=== PATIENT | female | born 1950 | race Caucasian/White ===

== ENCOUNTER 2020-08-08 09:22 | Outpatient (CLI) | payer MEDICARE, SELFPAY ==
[2020-08-08 09:47] LABS: Hematocrit 37.2 % (37.0-47.0); Hemoglobin 12.7 g/dL (12.0-15.0)
[2020-08-08 10:00] LABS: Blood Urea Nitrogen 17 mg/dL (7-17); Estimated Glomerular Filt Rate > 60
== END 2020-08-08 09:23 | disposition home or self-care (01) ==
PROVIDERS: PCP Internal Medicine
DX: I48.20 Chronic atrial fibrillation, unspecified (principal)
CPT/HCPCS: 36415; 82565; 84520; 85014; 85018

== ENCOUNTER 2021-02-05 10:28 | Outpatient (CLI) | payer MEDICARE, SELFPAY ==
--- NOTE | ~2021-02-05 | XR_ITS ---
EXAMINATION: XR lg joint inject/asp w image DATE: 02/05/2021 11:25 INDICATION: Right hip pain TECHNIQUE: A time-out was performed to verify the patient's name, date of , and procedure to b e performed. The procedure including the risks, benefits, and alternatives was discussed with the pat ient. Risks discussed included bleeding and infection. The patient understood the risks and agreed to proceed. The skin overlying the right hip joint was prepped and draped in usual sterile fashion. A nesthetic was administered with 1% lidocaine subcutaneously. A 22 G needle was advanced under fluoro scopic guidance into the joint. Injection of 1 mL of Omnipaque 240 confirmed intra-articular positio n of the needle. Subsequently, injectate consisting of 7 mm a 5:2 mixture of 1% lidocaine: 10 mg/mL Kenalog for a total dosage of 20 mL Kenalog was instilled. Washout of contrast was seen confirming in tra-articular administration. The needle was removed and the entry site was cleaned and dressed. The re were no immediate complications. Fluoroscopy exposure time was 0.1 minutes. The total number of im ages was 1. FINDINGS: Real-time fluoroscopy demonstrates the needle in the right hip joint. Patient's pain prior to procedure:5/10. Patient's pain following the procedure: 3/10. IMPRESSION: 1. Right hip joint injection of local anesthetic and steroid with decrease in the patient's presentin g pain. Reviewed, dictated and finalized at location A. IMPRESSION: 1. Right hip joint injection of local anesthetic and steroid with decrease in t he patient's presenting pain.
== END 2021-02-05 10:29 | disposition home or self-care (01) ==
LOC: ANHIMG 10:37
PROVIDERS: PCP Internal Medicine; Visit Provider Orthopaedic Surgery
DX: M16.11 Unilateral primary osteoarthritis, right hip (principal)
CPT/HCPCS: 20610; 77002; J3301; Q9966

== ENCOUNTER 2021-06-29 11:00 | Outpatient (CLI) | payer MEDICARE, SELFPAY ==
--- NOTE | ~2021-06-29 | XR_ITS ---
EXAMINATION: XR lg joint inject/asp w image DATE: 06/29/2021 12:20 INDICATION: Lateral primary osteoarthritis of the right hip TECHNIQUE: A time-out was performed to verify the patient's name, date of , and procedure to b e performed. The procedure including the risks, benefits, and alternatives was discussed with the pat ient. Risks discussed included bleeding and infection. The patient understood the risks and agreed to proceed. The skin overlying the right hip joint was prepped and draped in usual sterile fashion. A nesthetic was administered with 1% lidocaine subcutaneously. A 22 G needle was advanced under fluoro scopic guidance into the joint. Injection of 1 mL of Omnipaque 240 confirmed intra-articular positio n of the needle. Subsequently, injectate consisting of 7 mL a 5:2 mixture of 1% lidocaine: 10 mg/mL Kenalog for a total dosage of 20 mg Kenalog was instilled. Washout of contrast was seen confirming in tra-articular administration. The needle was removed and the entry site was cleaned and dressed. The re were no immediate complications. Fluoroscopy exposure time was 0.1 minutes. The total number of im ages was 2. FINDINGS: Real-time fluoroscopy demonstrates the needle in the right hip joint. Patient's pain prior to procedure:01/23. Patient's pain following the procedure: 10/25. IMPRESSION: 1. Successful right hip joint injection of local anesthetic and steroid with decrease in the patient' s presenting pain. Reviewed, dictated and finalized at location A. IMPRESSION: 1. Successful right hip joint injection of local anesthetic and steroid with de crease in the patient's presenting pain.
== END 2021-06-29 11:01 | disposition home or self-care (01) ==
LOC: ANHIMG 11:03
PROVIDERS: PCP Internal Medicine; Visit Provider Orthopaedic Surgery
DX: M16.11 Unilateral primary osteoarthritis, right hip (principal)
CPT/HCPCS: 20610; 77002; J3301; Q9966

== ENCOUNTER 2021-12-03 09:05 | Outpatient (CLI) | payer MEDICARE, SELFPAY ==
[2021-12-03 10:52] LABS: Basophils Absolute Auto 0.1 K/mm3 (0.0-0.1); Basophils Percent Auto 0.9 % (0.2-1.2); Eosinophils Absolute Auto 0.2 K/mm3 (0-0.3); Eosinophils Percent Auto 3.2 % (0-4.4); Hematocrit 40.9 % (37.0-47.0); Hemoglobin 13.6 g/dL (12.0-15.0); Immature Granulocyte Absolute 0.01 K/mm3 (0.00-0.031); Immature Granulocyte Percent A 0.2 % (0-0.5); Lymphocytes Absolute Auto 1.87 K/mm3 (0.9-3.2); Lymphocytes Percent Auto 35.2 % (18.3-44.2); Mean Corpuscular HGB Conc 33.3 g/dl (32-36); Mean Corpuscular Hemoglobin 29.8 pg (26-34); Mean Corpuscular Volume 89.7 fl (80-100); Mean Platelet Volume 9.2 fl (7.4-10.4); Monocytes Absolute Auto 0.4 K/mm3 (0.1-0.6); Monocytes Percent Auto 7.2 % (2.6-8.5); Neutrophils Absolute Auto 2.8 K/mm3 (1.3-6.7); Neutrophils Percent Auto 53.3 % (45.5-73.1); Platelet Count Result 308 k/mm3 (150-375); Red Blood Count 4.56 M/mm3 (4.2-5.4); Red Cell Distribution Width 12.8 % (11.5-14.5); White Blood Count 5.3 K/mm3 (4.5-10.0)
[2021-12-03 10:56] LABS: Urine Cotinine NEGATIVE
[2021-12-03 11:02] LABS: Albumin Level 4.7 g/dL (3.5-5.1); Estimated Glomerular Filt Rate > 60; Glucose 101 mg/dL (65-110)
[2021-12-03 12:14] LABS: Hemoglobin A1C 5.8 % (<5.7)
== END 2021-12-03 09:06 | disposition home or self-care (01) ==
PROVIDERS: PCP Internal Medicine; Visit Provider Orthopaedic Surgery
DX: M16.11 Unilateral primary osteoarthritis, right hip (principal); Z01.818 Encounter for other preprocedural examination
CPT/HCPCS: 80307; 82040; 82565; 82947; 83036; 85025; 86850; 86900; 86901; 87081

== ENCOUNTER 2021-12-14 01:14 | Day surgery (SDC) | payer MEDICARE, SELFPAY ==
[2021-12-03 09:18] VITALS: BMI 28.9
--- NOTE | 2021-12-03 09:57 | PC.NURSE ---
Report to the Outpatient Waiting Room, entrance under the green pavilion located off [facility], at time _0600 on date _12/14/21 . OR Time: . - You and your visitor will be asked a series of questions to screen for COVID 19 for your protection. - A mask is required within the hospital. Preoperative COVID Testing Requirements: No COVID Test needed if: (proof is required; if not received patient will have Rapid Test prior to entry) - Patient has received COVID Vaccine at least 14 days prior to procedure date or - Patient has positive COVID test result within last 90 days of surgery date. COVID Test needed if above criteria is not met If not COVID vaccinated a COVID test must be conducted within 72 hours of surgery and patient is asked to isolate self from time of testing until procedure. You will go to the [facility] for your COVID testing. The [facility] is located at the corner of [address] [facility]. You will only be called if COVID results are positive and your surgeon may reschedule your elective surgery date. Patients may have clear liquids (water, carbonated beverages, clear teas, apple juice) until 3 hours prior to surgery with a maximum of 20 ounces. - No food from midnight until time of surgery - Infants may have breast milk until 4 hours before surgery, formula 6 hours prior to surgery. - Children will be allowed to drink immediately following surgery. If applicable, please bring a bottle or sippy cup to assist with drinking. Juice, water, soda, and popsicles are readily available. For infants on formula, please bring formula the day of surgery. Pacifiers are allowed. Take the following medications with a SIP of water the morning of surgery: __LEVOTHYROXINE Medications to discontinue per physician ____ELIQUIS 48 HOURS PRE OP__PER DR MCKEON. ALL VITAMINS AND SUPPLEMENTS 3 DAY PRE OP Date to take last dose__ELIQUIS 2/26/22, VITAMINS 12/10/21 Please no make-up, nail cuban, hairspray, perfume, deodorant, or body powder the day of surgery. No jewelry (including any body piercings) or valuables the day of surgery, leave them at home. Please take a shower or bath the night before, or the morning of, surgery with an antibacterial soap. Wear comfortable, loose fitting clothing. Children are encouraged to wear pajamas. - Jewelry must be removed prior to entering the operating room. Rings and piercings that are not removed may be cut off. - The hospital will not accept responsibility for valuables. - Please leave all valuables, including medications, at home the day of surgery. If you are going home after surgery, a licensed [employer] flatbed driver must drive you home. - NO public transportation without another adult. - We recommend that an adult stay with you for 24 hours following discharge. - We also recommend that you do not drive, make important decision, drink alcoholic beverages, or take any drugs that were not prescribed by your health care provider for at least 24 hours after your discharge time. For Pediatric surgeries, we recommend two adults accompany the child home (only one inside the building at this time). One visitor will be allowed to accompany the patient into the hospital. Patients visitor will be instructed to remain with patient at all times or leave the building. We will allow the visitor to come back to the postoperative area when patient is ready. Follow any additional instructions given to you from your surgeon. VERBAL/WRITEN instructions given to ___PATIENT and asked if any additional questions and then verbalized understanding. Patient advised to call surgeon office or pre surgery nurse liaison [phone] if any additional questions.
[2021-12-03 10:16] VITALS: BP 128/62; PULSE 77; RESP 18; TEMP 36.6; O2SAT 99
--- NOTE | 2021-12-13 09:36 | WPDANESEPPF ---
Anes - Initial Pre Proc Eval Procedure: Operation Date: 12/14/21 07:30 Proposed Procedures p Right Total Hip Arthroplasty, Anterior Approach - William Randall MD Date/Time: 12/13/21 09:36 Surgeon: William Randall MD Pre Op Diagnosis: OA Right Hip Patient Data Age: 71 Gender: F Height: 1.55 m Weight: 69.4 kg Last Vital Signs Temp 36.6 C 12/03/21 10:16 Pulse 77 12/03/21 10:16 Resp 18 12/03/21 10:16 BP 128/62 12/03/21 10:16 Pulse Ox 99 12/03/21 10:16 Allergies Allergy/AdvReac Type Severity Reaction Status Date / Time Sulfa (Sulfonamide Allergy Unknown Rash Verified 12/07/21 09:57 Antibiotics) Home Medications Medication Instructions Recorded Confirmed Type apixaban 5 mg tablet 5 mg PO BID 08/11/20 12/03/21 History ascorbic acid (vitamin C) 500 mg 1,000 mg PO DAILY 08/11/20 12/03/21 History capsule carisoprodol 250 mg tablet 350 mg PO PRN PRN 08/11/20 12/03/21 History cholecalciferol (vitamin D3) 50 50 mcg PO DAILY 08/11/20 12/03/21 History mcg (2,000 unit) capsule coenzyme Q10 200 mg capsule 200 mg PO BID 08/11/20 12/03/21 History docusate sodium 100 mg capsule 100 mg PO HS 08/11/20 12/03/21 History multivitamin 1 tablet PO DAILY 08/11/20 12/03/21 History red yeast rice 600 mg capsule 600 mg PO BID 08/11/20 12/03/21 History tramadol 50 mg tablet 50 mg PO PRN PRN 08/11/20 12/03/21 History triamcinolone acetonide 0.025 % 1 applic TOPICAL PRN PRN 08/11/20 12/03/21 History topical ointment atorvastatin 10 mg tablet 10 mg PO 2XW 01/28/21 12/03/21 History calcium carbonate [Os-Toney] 500 mg PO DAILY 12/03/21 12/03/21 History levothyroxine 50 mcg PO DAILY 12/03/21 12/03/21 History metoprolol succinate 12.5 mg PO HS 12/03/21 12/03/21 History Patient hx anesthesia problems: none Family hx anesthesia problems: none Results Review: All pre-operative results and documents have been reviewed as part of the pre-operative evaluation. [facility] Past Medical History Medical History (Updated 12/13/21 @ 09:38 by Alexi Ansari DO) ADHD Arthritis of right hip Atrial fibrillation ablation 09/05 Breast cancer History of arthritis Hypothyroidism ARAMIS (obstructive sleep apnea) PONV (postoperative nausea and vomiting) Primary osteoarthritis, right shoulder Skin cancer Surgical History Surgical History (Updated 12/13/21 @ 09:38 by Alexi Ansari DO) H/O knee surgery left tka, Dr. Randall, 2009 H/O repair of right rotator cuff Dr. Randall, 1999 H/O shoulder surgery left, arthroscopy 2013 H/O: hysterectomy History of left shoulder replacement Family History Family History Mother Diabetes mellitus Cancer History of arthritis Cerebrovascular accident Father History of arthritis Social History Social History Smoking status: Never smoker Additional smoking assessment comments: DENIES ANY FORM OF TOBACCO USE Alcohol intake: current Drinks per week: 7 Alcohol use details: occasional Living arrangements: with family Additional living arrangements comments: spouse Gender identity (if verbalized by the patient): Female Spiritual care concerns: No Anes - Eval Final PreProcedure Day of Procedure 12/13/21 09:36 Patient weight: overweight Heart: regular rate and rhythm Lungs: clear to auscultation and normal air movement Airway: Mallampati scale class II Neurological: alert and oriented Last oral intake: >/= 8 hours ASA classification: III Emergent: no Anesthetic plan: proceed Anesthesia type and monitoring: general ETT and standard monitoring Results Review: All pre-operative results and documents have been reviewed as part of the pre-operative evaluation. Informed Consent: The patient's anesthetic plan and its attendant risks and benefits were discussed with the patient/family/POA. Questions were solicited and answers provided to
[2021-12-14] VITALS (8 sets, daily range): BP systolic 101–144; BP diastolic 56–90; PULSE 66–93; RESP 14–29; TEMP 36.3–36.9; O2SAT 98–100
--- NOTE | ~2021-12-14 | XR_ITS ---
EXAMINATION: XR surgery orthopedic DATE: 12/14/2021 08:43 INDICATION: Unilateral primary osteoarthritis, right hip. Aborted anterior approach total right hip a rthroplasty. TECHNIQUE: A single intraoperative fluoroscopic view of right hip was obtained. I was not present. Fl uoroscopy exposure time was 8 seconds. COMPARISON: Right hip radiographs 12/07/2021. FINDINGS: Bone alignment is normal. No fracture. There is moderate right hip osteoarthritis. IMPRESSION: 1. Moderate right hip osteoarthritis. Reviewed, dictated and finalized at location A. E CLEANER
[2021-12-14] MEDS: LACTATED RINGERS 1,000 ML 30 ML IV CONT (06:45)
[2021-12-14] MEDS: ACETAMINOPHEN 500 MG TABLET 1000 MG PO (07:00)
--- NOTE | 2021-12-14 07:12 | WPDHPUPDATE1 ---
History and Physical Update Update Date/Time: 12/14/21 07:12 History and Physical has been reviewed, including an updated exam of the patient. There are NO changes in the patient's condition. Risks, benefits, and alternatives have been discussed and questions answered. Patient agrees to proceed with procedure.
[2021-12-14] MEDS: TRANEXAMIC ACID 1,000MG/ISO100 1,000 MG/100 ML BAG 200 MG IVPB (07:15)
[2021-12-14] MEDS: ceFAZolin 2 GM/D5W 50 ML 2 GM/50 ML BAG IVPB (07:30)
--- NOTE | 2021-12-14 09:03 | P.OP_ITS ---
Procedure Note - Detailed Date of Procedure 12/14/21 Pre-op Diagnosis OA Right Hip Post-op Diagnosis same Procedure Performed Aborted right total hip replacement Surgeon William Randall MD As[employer] Removal Supervisor Dominique Park Anesthesia general Description of Procedure The patient was identified and proper site identified. She was taken back to the operating room and after general anesthetic induction and intubation was transferred to the [place] table position her supine in usual manner for an anteri or hip procedure. The right hip and thigh area was prepped and draped in usual sterile fashion. A longitudinal incision was made over the TFL muscle belly. There was what appeared clinically to be a lipoma in the area however the subcutaneous fat had a normal appearance. The TFL fascia was incised along for inspection of the muscle. The proximal 2/3 of this was fibrotic and non contractile with what appeared to be some type of an infiltrative lesion. The decision was made to biopsy this, obtain meticulous hemostasis and then after irrigation, closed the wound. It was closed with a looped PDS for the TFL fascia and the subcutaneous tissue, 3-0 Monocryl and 2-0 Quill with tissue adhesive for the skin. She received perioperative antibiotics. Estimated blood loss was negligible. Estimated Blood Loss 5 Drains No Packing No Pathology yes (Biopsy of TFL) Complications No immediate complications Condition stable Disposition PACU
[2021-12-14] MEDS: fentaNYL CITRATE INJ (*CRX) 100 MCG/2 ML VIAL 25 MCG IV PUSH ×4 (09:23→09:36)
--- NOTE | 2021-12-14 09:45 | SUR.PHASEI ---
0945 dr price at side and talked to pt about aborting procedure and pt to be discharged home.
== END 2021-12-14 11:15 | disposition home or self-care (01) ==
PROVIDERS: PCP Internal Medicine; Visit Provider Orthopaedic Surgery
PROC: (CPT 27130; principal; 2021-12-14 07:30)
DX: D17.9 Benign lipomatous neoplasm, unspecified (principal); M16.11 Unilateral primary osteoarthritis, right hip; G47.33 Obstructive sleep apnea (adult) (pediatric); E03.9 Hypothyroidism, unspecified; Z85.3 Personal history of malignant neoplasm of breast
CPT/HCPCS: 20205; 80307; 82040; 82565; 82947; 83036; 85025; 86850; 86900; 86901; 87081; 88305; A9270; J0171; J0690; J1100; J1170; J2250; J2270; J2405; J2704; J2710; J2795; J3010; J7120

== ENCOUNTER 2021-12-28 08:02 | Outpatient (CLI) | payer MEDICARE, SELFPAY ==
[2021-12-28 09:05] LABS: Anion Gap 7 mmol/L (8-16); Blood Urea Nitrogen 16 mg/dL (7-17); Carbon Dioxide 29 mmol/L (22-30); Chloride 102 mmol/L (98-107); Estimated Glomerular Filt Rate > 60; Glucose 102 mg/dL (65-110); Potassium 4.6 mmol/L (3.4-5.0); Sodium 138 mmol/L (137-145)
== END 2021-12-28 08:03 | disposition home or self-care (01) ==
LOC: ANHSURGERY 08:04
PROVIDERS: Anesthesiology; PCP Internal Medicine; Visit Provider Orthopaedic Surgery
DX: M16.11 Unilateral primary osteoarthritis, right hip (principal); Z79.899 Other long term (current) drug therapy; Z01.818 Encounter for other preprocedural examination
CPT/HCPCS: 36415; 80048; 86850; 86900; 86901

== ENCOUNTER 2022-01-11 14:58 | Observation (INO) | payer MEDICARE, SELFPAY ==
--- NOTE | 2021-12-28 08:02 | PC.NURSE ---
Report to the Outpatient Waiting Room, entrance under the green pavilion located off [facility], at time _0600_ on date _01/10/22_. OR Time: _0730_. - You and your visitor will be asked a series of questions to screen for COVID 19 for your protection. - A mask is required within the hospital. One visitor will be allowed to accompany the patient into the hospital. Patients visitor will be instructed to remain with patient at all times or leave the building. VISITING HOURS 10AM-7PM, USE MAIN ENTRANCE Preoperative COVID Testing Requirements: NONE Patients may have clear liquids (water, carbonated beverages, clear teas, apple juice) until 3 hours prior to surgery (0430 AM) with a maximum of 20 ounces. - No food from midnight until time of surgery Take the following medications with a SIP of water the morning of surgery: _LEVOTHYROXINE, PAIN MED IF NEEDED__ Medications to discontinue per PETS SALESPERSON - _ELIQUIS 2 DAYS PRIOR TO SURGERY, LAST DOSE TO BE TAKEN ON 01/07/22_ Medications to discontinue per ANESTHESIA - _ALL VITAMINS, SUPPLEMENTS, 3 DAYS PRIOR TO SURGERY, LAST DOSE TO BE TAKEN ON 01/06/22_ Please no make-up, nail english, hairspray, perfume, deodorant, or body powder the day of surgery. No jewelry (including any body piercings) or valuables the day of surgery, leave them at home. Please take a shower or bath the night before, or the morning of, surgery with an antibacterial soap. Wear comfortable, loose fitting clothing. - Jewelry must be removed prior to entering the operating room. Rings and piercings that are not removed may be cut off. - The hospital will not accept responsibility for valuables. - Please leave all valuables, including medications, at home the day of surgery. If you are going home after surgery, a licensed pick up driver must drive you home. - NO public transportation without another adult. - We recommend that an adult stay with you for 24 hours following discharge. - We also recommend that you do not drive, make important decision, drink alcoholic beverages, or take any drugs that were not prescribed by your health care provider for at least 24 hours after your discharge time. Follow any additional instructions given to you from DR. BURT Instructions given to __PT and asked if any additional questions and then verbalized understanding. Patient advised to call surgeon office or pre surgery nurse liaisonLEXIE [phone] if any additional questions.
[2021-12-28 08:17] VITALS: BP 118/68; PULSE 78; RESP 18; TEMP 36.7; O2SAT 98; BMI 28.3
--- NOTE | 2022-01-09 14:40 | WPDANESEPPF ---
Anes - Initial Pre Proc Eval Procedure: Operation Date: 01/10/22 07:30 Proposed Procedures p Right Total Hip Arthroplasty - William Randall MD Date/Time: 01/09/22 14:40 Surgeon: William Randall MD Pre Op Diagnosis: oa right hip Patient Data Age: 71 Gender: F Height: 1.55 m Weight: 68 kg Last Vital Signs Temp 36.7 C 12/28/21 08:17 Pulse 78 12/28/21 08:17 Resp 18 12/28/21 08:17 BP 118/68 12/28/21 08:17 Pulse Ox 98 12/28/21 08:17 Allergies Allergy/AdvReac Type Severity Reaction Status Date / Time Sulfa (Sulfonamide Allergy Unknown Rash Verified 01/10/22 06:27 Antibiotics) Home Medications Medication Instructions Recorded Confirmed Type apixaban 5 mg tablet 5 mg PO BID 08/11/20 01/10/22 History ascorbic acid (vitamin C) 500 mg 1,000 mg PO DAILY 08/11/20 01/10/22 History capsule carisoprodol 250 mg tablet 350 mg PO PRN PRN 08/11/20 01/10/22 History cholecalciferol (vitamin D3) 50 50 mcg PO DAILY 08/11/20 01/10/22 History mcg (2,000 unit) capsule coenzyme Q10 200 mg capsule 200 mg PO BID 08/11/20 01/10/22 History docusate sodium 100 mg capsule 100 mg PO HS 08/11/20 01/10/22 History multivitamin 1 tablet PO DAILY 08/11/20 01/10/22 History red yeast rice 600 mg capsule 600 mg PO BID 08/11/20 01/10/22 History tramadol 50 mg tablet 50 mg PO PRN PRN 08/11/20 01/10/22 History triamcinolone acetonide 0.025 % 1 applic TOPICAL PRN PRN 08/11/20 12/29/21 History topical ointment atorvastatin 10 mg tablet 10 mg PO 2XW 01/28/21 01/10/22 History calcium carbonate 500 mg PO DAILY 12/03/21 01/10/22 History levothyroxine 50 mcg PO DAILY 12/03/21 01/10/22 History metoprolol succinate 12.5 mg PO HS 12/03/21 01/10/22 History hydrocodone-acetaminophen 1 tablet PO Q4H PRN #20 tablet 12/14/21 01/10/22 Rx furosemide 40 mg PO DAILY PRN 12/28/21 12/29/21 History furosemide 40 mg tablet 40 mg PO QAM 12/29/21 12/29/21 History Patient hx anesthesia problems: none Family hx anesthesia problems: none Results Review: All pre-operative results and documents have been reviewed as part of the pre-operative evaluation. [facility] Past Medical History Medical History ADHD Arthritis of right hip Atrial fibrillation ablation 09/05 Breast cancer History of arthritis Hypothyroidism ARAMIS (obstructive sleep apnea) PONV (postoperative nausea and vomiting) Primary osteoarthritis, right shoulder Skin cancer Surgical History Surgical History H/O knee surgery left tka, Dr. Randall, 2009 H/O repair of right rotator cuff Dr. Randall, 1999 H/O shoulder surgery left, arthroscopy 2013 H/O: hysterectomy History of left shoulder replacement Family History Family History Mother Diabetes mellitus Cancer History of arthritis Cerebrovascular accident Father History of arthritis Social History Social History Smoking status: Never smoker Second hand tobacco smoke exposure: No Additional smoking assessment comments: PT DENIES ALL FORMS OF TOBACCO USE Alcohol intake: current Drinks per week: 7 Alcohol use details: occasional Substance use: never Substance use type: does not use Living arrangements: with family Additional living arrangements comments: spouse Gender identity (if verbalized by the patient): Female Spiritual care concerns: No Anes - Eval Final PreProcedure Day of Procedure 01/09/22 14:40 Patient weight: overweight Heart: regular rate and rhythm Lungs: clear to auscultation and normal air movement Airway: Mallampati scale class II Neurological: alert and oriented Last oral intake: >/= 8 hours ASA classification: III Emergent: no Anesthetic plan: proceed Anesthesia type and monitoring: general ETT and standard monitoring Results Review: All pre-operati
[2022-01-10] VITALS (15 sets, daily range): BP systolic 89–132; BP diastolic 39–68; PULSE 65–93; RESP 12–23; TEMP 35.6–37.4; O2SAT 92–100
[2022-01-10] MEDS: ACETAMINOPHEN 500 MG TABLET 1000 MG PO (06:40)
[2022-01-10] MEDS: LACTATED RINGERS 1,000 ML 30 ML IV CONT ×2 (06:45→10:25)
--- NOTE | 2022-01-10 07:13 | WPDHPUPDATE1 ---
History and Physical Update Update Date/Time: 01/10/22 07:13 History and Physical has been reviewed, including an updated exam of the patient. There are NO changes in the patient's condition. Risks, benefits, and alternatives have been discussed and questions answered. Patient agrees to proceed with procedure.
[2022-01-10] MEDS: TRANEXAMIC ACID 1,000MG/ISO100 1,000 MG/100 ML BAG 200 MG IVPB (07:15)
[2022-01-10] MEDS: ceFAZolin 2 GM/D5W 50 ML 2 GM/50 ML BAG IVPB ×3 (07:30→23:01)
--- NOTE | 2022-01-10 10:41 | W.PM.PROC2 ---
Procedure Note - Detailed Date of Procedure 01/10/22 Pre-op Diagnosis oa right hip Post-op Diagnosis Same Procedure Performed Right total hip replacement through an anterolateral approach Surgeon William Randall MD [place] Pumper Dominique Park Anesthesia General Description of Procedure The patient was identified and proper site identified. Prior incision from anterior approach healed very nicely. She was taken back to the operating room and transferred to the OR table placing her supine taking care to pad her torso and extremities. After general anesthetic induction and intubation, she was position in the left lateral decubitus position in the usual manner for the procedure. Care was taken to properly pad and position her torso and extremities. The right lower extremity was prepped and draped in usual sterile fashion. A curvilinear incision was made over the greater trochanter. Subcutaneous tissue sharply dissected down to the gluteus fascia and ITB band which were divided in line with the incision. The anterior half of the abductors were extremely attenuated. The remaining abductor was released off of the greater trochanter. Capsule was divided in inverted T fashion allowing for access to the hip joint. The hip was dislocated and a neck cut was made about two fingerbreadths above the level of the lesser trochanter. The acetabulum was cleared of debris and sequentially reamed up to 51 millimeters for a size 52 G7 cup which was impacted in about 20? of anteversion and 45? of abduction following the patient's anatomy. It was further secured with two screws and then the liner for the dual mobility cup was seated after cleaning the acetabular component. The proximal femur was broached up to a size 12 microplasty high offset stem. The hip was reduced and noted to be stable. Intraoperative x-ray showed not only good position of the acetabular component but good fit and fill of the femoral component. Trial components were removed. The femur was cleaned and then the real size 12 high offset microplasty stem inserted in approximately 15? of anteversion following the patient's anatomy. The combination of a 28- three head with the dual mobility cup the 52 gave good uatsdin of leg lengths and excellent stability. The neck and femoral component was cleaned and dried the real size 28- two head with the dual mobility polyethylene wear seated on the neck and the femoral component after joining the two head components. Hip again reduced and stability assessed. It was noted be stable with no tendency for dislocation at any point through range of motion. After thorough lavage of the joint, the capsule was repaired with interrupted 2. Vicryl suture. The periarticular and sheridan-incisional tissues were infiltrated with a total of 60 cubic centimeters of the arthroplasty solution. Surgicel powder was used both deep and superficial to the extensor mechanism throughout the closure. The abductor was repaired back to the greater trochanter with combination of 5. Ethibond suture passed a bony bridge and 2. Vicryl. This gave a jacobsen repair which was stable as the hip was taken through range of motion. The deep fascia was reapproximated with 0 looped PDS suture as was the deeper layers of the subcu. More superficially 3-0 Monocryl, 2-0 Quill and tissue adhesive were used for the skin. Sterile dressing was applied. She tolerated the procedure well. She was returned to supine position, awakened, extubated then taken to recovery area in stable condition. There were no known intraoperative complications. Estimated blood loss 250 milliliters. There was not enough to do cell Saver return. She received perioperative antibiotics. Estimated Blood Loss -250.0 Urine Output -350.0 Packing No Pathology None sent Complications No immediate complications Condition Stable Disposition PACU
[2022-01-10] MEDS: fentaNYL CITRATE INJ (*CRX) 100 MCG/2 ML VIAL 25 MCG IV PUSH ×7 (10:51→11:27)
[2022-01-10 11:07] LABS: Hematocrit 33.8 % (37.0-47.0); Hemoglobin 11.4 g/dL (12.0-15.0)
--- NOTE | 2022-01-10 12:10 | ADMGEN ---
This patient, Alexandria Howe, was admitted to Medical Room 255-. Patient/family oriented to hospital policies and general routines including ID bracelet, bed and alarms, visiting hours, pain management, procedures, bathroom and other care routines, personal items, smoking policy, room service/diet, and visiting hours. Information on how to activate the Rapid Response Team has been discussed. Patient/Family are encouraged to report perceived risks to care and to ask questions if they do not understand what they are told or what they should do.
[2022-01-10] MEDS: SODIUM CHLORIDE 0.9% IV 1,000 ML 125 ML IV CONT (12:33)
[2022-01-10] MEDS: KETOROLAC 15 MG/ML VIAL (*BKC) IV PUSH ×3 (12:35→23:02)
[2022-01-10] MEDS: HYDROcodone/acetaminophen (*CRX) 7.5-325 MG TABLET 1 TAB PO ×2 (13:54→17:47)
[2022-01-10] MEDS: APIXABAN 5 MG TABLET PO (16:31)
[2022-01-10] MEDS: SENNA/DOCUSATE SODIUM TABLET 2 TAB PO (16:31)
[2022-01-10] MEDS: ATORVASTATIN 10 MG TABLET PO (20:05)
[2022-01-10] MEDS: HYDROcodone/acetaminophen (*CRX) 7.5-325 MG TABLET 2 TAB PO (23:36)
[2022-01-11] VITALS (10 sets, daily range): BP systolic 94–126; BP diastolic 40–57; PULSE 87–100; RESP 14–20; TEMP 36.3–37.1; O2SAT 91–100
--- NOTE | ~2022-01-11 | XR_ITS ---
EXAMINATION: XR hip RT min 2V DATE: 01/10/2022 10:38 INDICATION: Right total hip arthroplasty. Postop. TECHNIQUE: 2 views of right hip were obtained. COMPARISON: Right hip radiographs 12/07/2021 FINDINGS: There is a total right hip arthroplasty in near-anatomic alignment. No fracture. There is g as in the soft tissues, consistent with recent surgery. IMPRESSION: 1. Total right hip arthroplasty in near-anatomic alignment. Reviewed, dictated and finalized at location A.
--- NOTE | ~2022-01-11 | XR_ITS ---
EXAMINATION: XR surgery orthopedic DATE: 01/10/2022 09:22 INDICATION: Intraoperative evaluation during right total hip arthroplasty TECHNIQUE: Frontal view of the right total hip was obtained. COMPARISON: 12/07/2021 FINDINGS: Intraoperative image during a right total hip arthroplasty demonstrate placement of an acetabular com ponent which appears in near anatomic alignment on the single image provided. A femoral broach is in place with the proximal tip centered over the acetabular component. Portions of the pelvis are obscu red by a bolster. No fractures in the visualized bones. IMPRESSION: 1. Expected appearance during right total hip arthroplasty. Reviewed, dictated and finalized at location A.
[2022-01-11] MEDS: KETOROLAC 15 MG/ML VIAL (*BKC) IV PUSH ×2 (06:00→12:26)
[2022-01-11] MEDS: LEVOTHYROXINE SODIUM 50 MCG TABLET PO (06:00)
[2022-01-11] MEDS: ceFAZolin 2 GM/D5W 50 ML 2 GM/50 ML BAG IVPB (06:01)
[2022-01-11 06:02] LABS: Basophils Percent Auto 0.6 % (0.2-1.2); Eosinophils Absolute Auto 0.1 K/mm3 (0-0.3); Hemoglobin 9.5 g/dL (12.0-15.0); Immature Granulocyte Absolute 0.02 K/mm3 (0.00-0.031); Immature Granulocyte Percent A 0.3 % (0-0.5); Lymphocytes Percent Auto 22.6 % (18.3-44.2); Mean Corpuscular HGB Conc 32.8 g/dl (32-36); Mean Corpuscular Hemoglobin 30.4 pg (26-34); Mean Corpuscular Volume 92.7 fl (80-100); Mean Platelet Volume 9.3 fl (7.4-10.4); Monocytes Absolute Auto 0.6 K/mm3 (0.1-0.6); Monocytes Percent Auto 8.9 % (2.6-8.5); Neutrophils Absolute Auto 4.7 K/mm3 (1.3-6.7); Neutrophils Percent Auto 66.6 % (45.5-73.1); Platelet Count Result 217 k/mm3 (150-375); Red Blood Count 3.13 M/mm3 (4.2-5.4); Red Cell Distribution Width 13.2 % (11.5-14.5); White Blood Count 7.1 K/mm3 (4.5-10.0)
[2022-01-11] MEDS: HYDROcodone/acetaminophen (*CRX) 7.5-325 MG TABLET 1 TAB PO ×3 (06:16→15:46)
[2022-01-11 06:28] LABS: Anion Gap 3 mmol/L (8-16); Blood Urea Nitrogen 10 mg/dL (7-17); Carbon Dioxide 27 mmol/L (22-30); Chloride 105 mmol/L (98-107); Estimated CRCL calculation 62 ml/min; Estimated Glomerular Filt Rate > 60; Glucose 110 mg/dL (65-110); Potassium 3.9 mmol/L (3.4-5.0); Sodium 135 mmol/L (137-145)
[2022-01-11] MEDS: MULTIVITAMINS THERAPEUTIC TAB (*BKC) 1 TABLET PO (08:03)
[2022-01-11] MEDS: SENNA/DOCUSATE SODIUM TABLET 2 TAB PO ×2 (08:03→16:29)
[2022-01-11] MEDS: ASCORBIC ACID 500 MG TABLET 1000 MG PO (08:03)
[2022-01-11] MEDS: polyethylene glycoL 3350 17 GM POWD.PACK PO (08:03)
[2022-01-11] MEDS: CALCIUM CARBONATE (OSCAL) 500 MG TABLET PO (08:03)
[2022-01-11] MEDS: CHOLECALCIFEROL 1,000 UNITS TABLET 2000 UNITS PO (08:03)
[2022-01-11] MEDS: APIXABAN 5 MG TABLET PO ×2 (08:03→16:29)
--- NOTE | 2022-01-11 08:29 | PM.DS ---
DS: Admitting Diagnosis Discharge Date January 11, 2022 Admitting Diagnosis Right hip osteoarthritis DS: Discharge Diagnosis Discharge Diagnosis (1) History of total right hip arthroplasty: Code(s): Z96.641 - Presence of right artificial hip joint Status: Acute Assessment and Plan: 71-year-old female postop day 1 after right total hip arthroplasty by Dr. Randall. She does report a dull ache in the hip but it is controlled with the pain medication she is taking. She had an unremarkable overnight stay and we will plan to see her in 2 weeks for wound check. She will be discharged home with hydrocodone 7.5/325 mg for pain control. I informed her not to take scheduled Tylenol while she is taking this medication. When she has weaned herself off of this medication she can start taking the Tylenol on a schedule. She will resume her previously prescribed Eliquis for DVT prophylaxis. DS: Summary Hospital Course Reason for hospitalization: Observation after outpatient procedure Hospital Course: 71-year-old female admitted for observation after right total hip arthroplasty using anterior lateral approach by Dr. Randall. She did receive therapy yesterday and will planned to do so again today prior to discharge. Unremarkable overnight stay. Status at Discharge Functional status at discharge: uses cane/walker Overall status at discharge: patient is progressing back to baseline Time Spent with Patient Time attestation: Total time spent providing and/or coordinating discharge services: Time spent: Less than 30 minutes Exam Const: General: comfortable and no acute distress HENMT: Mouth: Yes moist mucous membranes Eyes: General: appearance normal, both eyes and all related structures Resp: Effort & Inspection: normal respiratory effort GI: Inspection: non-distended GI Palp: No Tenderness to palpation present (GI) Neuro: Sensory Exam: normal sensation Extrem: Other: Exam of the right lower extremity reveals a clean and dry surgical dressing. Mild swelling in the extremity. She is able to wiggle toes and plantar and dorsiflex the foot without difficulty. Neurovascular status unremarkable. Calves negative. Psych: Mental Status: mental status grossly normal DS: Data Data Completed and Pending Labs on day of discharge: Labs from last 24 hours 01/11/22 01/11/22 01/10/22 05:42 05:42 10:57 WBC 7.1 RBC 3.13 L Hgb 9.5 L 11.4 L Hct 29.0 L 33.8 L MCV 92.7 MCH 30.4 MCHC 32.8 RDW 13.2 Plt Count 217 MPV 9.3 Immature Gran % (Auto) 0.3 Neut % (Auto) 66.6 Lymph % (Auto) 22.6 [place] % (Auto) 8.9 H Eos % (Auto) 1.0 Baso % (Auto) 0.6 Lymph # (Auto) 1.60 [place] # (Auto) 0.6 Eos # (Auto) 0.1 Baso # (Auto) 0.0 Abs Immat Gran (auto) 0.02 Absolute Neuts (auto) 4.7 Absolute Nucleated RBC 0.0 Nucleated RBC % 0.0 Sodium 135 L Potassium 3.9 Chloride 105 Carbon Dioxide 27 Anion Gap 3 L BUN 10 D Creatinine 0.60 L Estim Creat Clear Calc 62 Estimated GFR > 60 Glucose 110 Calcium 8.0 L Discharge Plan Discharge Patient Disposition: Home, Self-Care Discharge Instructions: 3 times daily for 20 minutes each time, reclining in bed with ice packs over the incision and a pillow underneath the calf of the affected leg, not under the knee. Your wound is glued so it is okay to get into the shower and get the wound wet in two days. Be sure to get up and move around several times daily but do not overdue it. Be sure to read through all the information that came from my office and the hospital. Most of the answers you will need can be found in that material. Call the office with any questions that you cannot find answers to, or concerns you may have. You will resume taking your Eliquis for DVT prophylaxis. Once the Xarelto is completed, if you wish to supplement your pain regimen with [id number] anti-inflammatory such as Ad
--- NOTE | 2022-01-11 11:53 | P.PNAN_ITS ---
Anes - Prog Note Post-Op Date/Time: 01/11/22 11:53 Cardiovascular status: normal Respiratory status: normal Airway patency: baseline Mental status: baseline Post-Op hydration status: normal Vital Signs: Last Vital Signs Temp 97.7 F 01/11/22 10:25 Pulse 92 01/11/22 10:25 Resp 16 01/11/22 10:25 BP 126/54 L 01/11/22 10:25 Pulse Ox 100 01/11/22 10:25 Pain Score (VAS): 4 I/O: Intake & Output 01/10/22 01/11/22 01/11/22 23:59 07:59 15:59 Intake Total 890 650 590 Output Total 440 1450 200 Balance 450 -800 390 Laboratory Tests 01/11/22 05:42 01/11/22 05:42 01/11/22 01/11/22 05:42 05:42 WBC 7.1 RBC 3.13 L Hgb 9.5 L Hct 29.0 L MCV 92.7 MCH 30.4 MCHC 32.8 RDW 13.2 Plt Count 217 MPV 9.3 Immature Gran % (Auto) 0.3 Neut % (Auto) 66.6 Lymph % (Auto) 22.6 [place] % (Auto) 8.9 H Eos % (Auto) 1.0 Baso % (Auto) 0.6 Lymph # (Auto) 1.60 [place] # (Auto) 0.6 Eos # (Auto) 0.1 Baso # (Auto) 0.0 Abs Immat Gran (auto) 0.02 Absolute Neuts (auto) 4.7 Absolute Nucleated RBC 0.0 Nucleated RBC % 0.0 Sodium 135 L Potassium 3.9 Chloride 105 Carbon Dioxide 27 Anion Gap 3 L BUN 10 D Creatinine 0.60 L Estim Creat Clear Calc 62 Estimated GFR > 60 Glucose 110 Calcium 8.0 L Patient Feedback: Patient satisfied with anesthetic care.
[2022-01-11] MEDS: HYDROcodone/acetaminophen (*CRX) 7.5-325 MG TABLET 2 TAB PO (19:50)
[2022-01-11] MEDS: METOPROLOL SUCCINATE EXT REL 12.5 MG TABCR PO (21:41)
[2022-01-12 00:28] VITALS: BP 110/50; PULSE 89; RESP 14; TEMP 36.8; O2SAT 92
[2022-01-12] MEDS: HYDROcodone/acetaminophen (*CRX) 7.5-325 MG TABLET 2 TAB PO ×2 (02:05→08:07)
[2022-01-12 04:26] VITALS: BP 110/51; PULSE 87; RESP 14; TEMP 36.8; O2SAT 95
[2022-01-12] MEDS: LEVOTHYROXINE SODIUM 50 MCG TABLET PO (06:08)
[2022-01-12] MEDS: APIXABAN 5 MG TABLET PO (08:07)
[2022-01-12] MEDS: polyethylene glycoL 3350 17 GM POWD.PACK PO (08:07)
[2022-01-12] MEDS: CHOLECALCIFEROL 1,000 UNITS TABLET 2000 UNITS PO (08:07)
[2022-01-12] MEDS: ASCORBIC ACID 500 MG TABLET 1000 MG PO (08:07)
[2022-01-12] MEDS: MULTIVITAMINS THERAPEUTIC TAB (*BKC) 1 TABLET PO (08:08)
[2022-01-12] MEDS: SENNA/DOCUSATE SODIUM TABLET 2 TAB PO (08:08)
[2022-01-12] MEDS: CALCIUM CARBONATE (OSCAL) 500 MG TABLET PO (08:08)
== END 2022-01-12 13:02 | disposition home or self-care (01) ==
LOC: ANHSURGERY 15:05 → ANH2MED 15:05
PROVIDERS: Admitting Provider Orthopaedic Surgery; PCP Internal Medicine; Visit Provider Orthopaedic Surgery
PROC: (CPT 27130; principal; 2022-01-10 07:30)
DX: M16.11 Unilateral primary osteoarthritis, right hip (principal); I48.91 Unspecified atrial fibrillation; E03.9 Hypothyroidism, unspecified; G47.33 Obstructive sleep apnea (adult) (pediatric); M19.011 Primary osteoarthritis, right shoulder; Z85.828 Personal history of other malignant neoplasm of skin; Z85.3 Personal history of malignant neoplasm of breast; Z96.652 Presence of left artificial knee joint; Z96.612 Presence of left artificial shoulder joint; Z90.710 Acquired absence of both cervix and uterus
CPT/HCPCS: 27130; C1776; 36415; 73502; 80048; 85014; 85018; 85025; 86850; 86900; 86901; 97110; 97116; 97161; 97165; 97530; 97535; A9270; G0378; J0171; J0690; J1100; J1170; J1885; J2250; J2270; J2370; J2405; J2704; J2710; J2795; J3010; J7030; J7120

== ENCOUNTER 2022-10-01 14:10 | Emergency (ER) | payer MEDICARE, SELFPAY ==
[2022-10-01 15:08] VITALS: BP 150/62; PULSE 97; RESP 18; TEMP 37.1; O2SAT 100
--- NOTE | 2022-10-01 15:33 | ED.URI ---
HPI - URI/Sore Throat General Chief Complaint: Upper Respiratory Infection Stated Complaint: Sore Throat,Diarrhea Time Seen by Provider: 10/01/22 15:15 Source: patient and RN notes reviewed Mode of arrival: ambulatory Limitations: no limitations History of Present Illness HPI Narrative: 72-year-old female presenting for complaint of sore throat, fatigue, body aches, and fever. Onset yesterday. T100.1. Denies Sinus pressure, cough, shortness of breath, wheezing. Denies sick contacts, but has been around [employer] goers. She has not taken anything for symptoms today. MD elicited complaint: cough Related Data Home Medications Medication Instructions Recorded Confirmed apixaban 5 mg tablet 5 mg PO BID 08/11/20 10/01/22 ascorbic acid (vitamin C) 500 mg 1,000 mg PO DAILY 08/11/20 10/01/22 capsule carisoprodol 250 mg tablet 350 mg PO TID PRN Muscle Spasm 08/11/20 10/01/22 cholecalciferol (vitamin D3) 50 50 mcg PO DAILY 08/11/20 10/01/22 mcg (2,000 unit) capsule (Vitamin D3) coenzyme Q10 200 mg capsule (Co 200 mg PO BID 08/11/20 10/01/22 Q-10) multivitamin (Daily Multi-Vitamin 1 tablet PO DAILY 08/11/20 10/01/22 tablet) red yeast rice 600 mg capsule 600 mg PO BID 08/11/20 10/01/22 atorvastatin 10 mg tablet 10 mg PO 2XW 01/28/21 10/01/22 calcium carbonate 500 mg calcium 500 mg PO DAILY 12/03/21 10/01/22 (1,250 mg) tablet levothyroxine 50 mcg tablet 50 mcg PO DAILY 12/03/21 10/01/22 metoprolol succinate 25 mg 12.5 mg PO HS 12/03/21 10/01/22 tablet,extended release 24 hr furosemide 40 mg tablet (Lasix) 40 mg PO QAM 12/29/21 10/01/22 Allergies Allergy/AdvReac Type Severity Reaction Status Date / Time Sulfa (Sulfonamide AdvReac Mild Rash Verified 10/01/22 15:02 Antibiotics) Review of Systems Review of Systems: ROS per HPI PMFSH Past Medical History Medical History ADHD Arthritis of right hip Atrial fibrillation ablation 09/05 Breast cancer History of arthritis Hypothyroidism ARAMIS (obstructive sleep apnea) PONV (postoperative nausea and vomiting) Primary osteoarthritis, right shoulder Skin cancer Surgical History Surgical History H/O knee surgery left tka, Dr. Randall, 2009 H/O repair of right rotator cuff Dr. Randall, 1999 H/O shoulder surgery left, arthroscopy 2013 H/O: hysterectomy History of left shoulder replacement Family History Family History Mother Diabetes mellitus Cancer History of arthritis Cerebrovascular accident Father History of arthritis Social History Social History Smoking status: Never smoker Second hand tobacco smoke exposure: No Additional smoking assessment comments: PT DENIES ALL FORMS OF TOBACCO USE Alcohol intake: current Drinks per week: 7 Alcohol use details: occasional Substance use: never Substance use type: does not use Additional living arrangements comments: spouse Gender identity (if verbalized by the patient): Female Spiritual care concerns: No Exam Narrative: GENERAL: Ill-appearing, nontoxic HEAD: Normocephalic EYES: PERRLA, conjunctivae clear ENT: Mucous membranes moist. TMs pearly hayden with dull light reflex bilaterally; no tragal tenderness. Oropharynx mildly erythematous without lesions or exudate, tonsils absent no drooling, no hoarseness, no trismus, uvula midline. No tripod positioning, muffled voice, soft palate or pharyngeal wall bulging NECK: Supple. No lymphadenopathy CHEST: Clear to auscultation, breath sounds equal. No wheezing, rhonchi, rales, or stridor. No respiratory distress, speaks in full sentences. HEART: Regular rate and rhythm. No murmur heard. SKIN: Warm, dry, no rash. NEURO: Alert and oriented x3. Course Course Emergency Course: Patient is aware of diagnosis
== END 2022-10-01 15:55 | disposition home or self-care (01) ==
PROVIDERS: Emergency Provider Nurse Practitioner Family; PCP Internal Medicine
DX: B34.9 Viral infection, unspecified (principal); Z20.822 Contact with and (suspected) exposure to COVID-19; M16.11 Unilateral primary osteoarthritis, right hip; Z85.3 Personal history of malignant neoplasm of breast; E03.9 Hypothyroidism, unspecified; M19.011 Primary osteoarthritis, right shoulder; Z85.828 Personal history of other malignant neoplasm of skin; Z96.612 Presence of left artificial shoulder joint
CPT/HCPCS: 87081; 87426; 87804; 99213; C9803; G0463

== ENCOUNTER → 2023-03-28 09:32 | Outpatient (CLI) | payer MEDICARE, SELFPAY ==
--- NOTE | ~2023-03-28 | MR_ITS ---
EXAMINATION: MR knee RT wo con DATE: 03/28/2023 10:34 INDICATION: M17.11 - Unilateral primary osteoarthritis, right knee TECHNIQUE: Magnetic resonance imaging (MRI) of the right knee was performed without intravenous contr ast. Sequences included axial PD-weighted FS FSE, coronal PD-weighted FSE and PD-weighted FS FSE, sag ittal PD-weighted FSE, and sagittal T2-weighted FS FSE. COMPARISON: None. FINDINGS: Medial compartment: Radial tear of the posterior horn. Mild extrusion. Apical fraying. Full-thickness cartilage loss on t he MFC. Near full-thickness cartilage loss on the medial tibial plateau. Moderate osteophytosis. Lateral compartment: Apical fraying. Mild osteophytosis. Moderate diffuse cartilage thinning. Patellofemoral compartment: Full-thickness cartilage loss along the medial facet. Mild osteophytosis. Ligaments and tendons: Complete ACL tear. Intact PCL. Mild thickening and low signal in the MCL as can be seen with chronic mild partial tears. Intact LCL. Remaining flexor and extensor tendons are intact. High signal deep to the pes anserine tendons. Fluid: Moderate volume joint fluid. Moderate sized Salomon's cyst. Osseous/other: No suspicious focal or diffuse marrow signal. Large posterior lateral fabella. IMPRESSION: 1. Radial tear of the medial meniscus. 2. Full-thickness ACL tear. 3. Pes anserine bursitis. 4. Tricompartmental osteoarthritic change, severe in the medial compartment. 5. Moderate joint effusion. Moderate-sized Salomon's cyst. Reviewed, dictated and finalized at location K.
== END ==
PROVIDERS: PCP Nurse Practitioner; Visit Provider Orthopaedic Surgery
DX: M17.11 Unilateral primary osteoarthritis, right knee (principal); S83.241A Other tear of medial meniscus, current injury, right knee, initial encounter; X58.XXXA Exposure to other specified factors, initial encounter; S83.511A Sprain of anterior cruciate ligament of right knee, initial encounter; M25.461 Effusion, right knee; M71.21 Synovial cyst of popliteal space [Baker], right knee
CPT/HCPCS: 73721

== ENCOUNTER 2023-05-12 07:56 | Outpatient (CLI) | payer MEDICARE, SELFPAY ==
--- NOTE | 2023-05-12 09:02 | ECG_ITS ---
Measurements Intervals [place] Rate: 67 P: 57 OK: 132 QRS: -5 QRSD: 98 T: -11 QT: 426 QTc: 453 Interpretive Statements SINUS RHYTHM NONSPECIFIC ST & T-WAVE ABNORMALITY- INFERIOR LEADS BASELINE ARTIFACT- I, III, AVR, AVL, AVF, V1-V6 BORDERLINE ECG NO PREVIOUS ECG AVAILABLE FOR COMPARISON Electronically Signed On 05-12-2023 19:30:47 CDT by Eddy Santacruz D.O.
[2023-05-12 09:25] LABS: Basophils Absolute Auto 0.1 K/mm3 (0.0-0.1); Eosinophils Absolute Auto 0.3 K/mm3 (0-0.3); Eosinophils Percent Auto 4.8 % (0-4.4); Hematocrit 39.2 % (37.0-47.0); Immature Granulocyte Absolute 0.01 K/mm3 (0.00-0.031); Immature Granulocyte Percent A 0.2 % (0-0.5); Lymphocytes Absolute Auto 1.31 K/mm3 (0.9-3.2); Mean Corpuscular HGB Conc 33.2 g/dl (32-36); Mean Corpuscular Hemoglobin 29.5 pg (26-34); Mean Corpuscular Volume 89.1 fl (80-100); Monocytes Absolute Auto 0.5 K/mm3 (0.1-0.6); Monocytes Percent Auto 8.8 % (2.6-8.5); Neutrophils Absolute Auto 3.2 K/mm3 (1.3-6.7); Neutrophils Percent Auto 60.2 % (45.5-73.1); Platelet Count Result 345 k/mm3 (150-375); Red Cell Distribution Width 12.9 % (11.5-14.5); White Blood Count 5.2 K/mm3 (4.5-10.0)
[2023-05-12 09:33] LABS: Albumin Level 4.7 g/dL (3.5-5.1)
[2023-05-12 09:38] LABS: Anion Gap 7 mmol/L (8-16); Blood Urea Nitrogen 9 mg/dL (7-17); Calcium 9.4 mg/dL (8.4-10.2); Carbon Dioxide 31 mmol/L (22-30); Chloride 100 mmol/L (98-107); Estimated Glomerular Filt Rate > 60; Glucose 97 mg/dL (65-110); Potassium 4.4 mmol/L (3.4-5.0); Sodium 138 mmol/L (137-145)
[2023-05-12 09:39] LABS: Urine Cotinine NEGATIVE
[2023-05-12 10:08] LABS: Hemoglobin A1C 5.7 % (<5.7)
== END 2023-05-12 07:57 | disposition home or self-care (01) ==
LOC: ANHSURGERY 08:04
PROVIDERS: Anesthesiology; PCP Nurse Practitioner; Visit Provider Orthopaedic Surgery
DX: M17.11 Unilateral primary osteoarthritis, right knee (principal); I10 Essential (primary) hypertension; Z01.818 Encounter for other preprocedural examination
CPT/HCPCS: 80048; 80307; 82040; 83036; 85025; 87081; 93005

== ENCOUNTER 2023-05-24 09:00 | Outpatient (RCR) | payer MEDICARE, SELFPAY ==
--- NOTE | 2023-03-28 09:25 | OTOPEVAL1 ---
Assessment and note entered by Candelario Jara, EZEKIEL/Lanny, CHT Evaluation Information Assessment Status Evaluation Diagnosis Closed fracture dislocation of right elbow Subjective Information Patient is s/p ORIF 03/17/23. She is right handed. Patient reporting stiffness and pain limiting functional use of the right UE. She is unable to complete lifting or carrying tasks. Unable to change the sheets on her bed. Reported Pain Level Pain Score 1: Self Report Additional Pain Score Comments Pain increases to 7-8/10 with ROM exercises. Assessment OT Clinical Summary Patient referred to outpatient OT s/p right elbow ORIF. She presents with weakness, stiffness, and pain that is limiting functional use of the right UE. Skilled OT indicated for HEP instruction and progression, functional therapeutic exercise, manual therapy, and modalities to facilitate optimal functional use of the right UE. Plan of Care Interventions Therapeutic Exercise,Manual Therapy,Neuro Re- education,Therapeutic Activities,Hot Pack/Cold Pack,Paraffin OT Services Indicated Yes Treatment Frequency and 2x/week for 4 weeks Duration These treatments will address the objective and functional deficits as defined above. The patient will be advanced safely and appropriately in order for the patient to progress towards his/her prior level of function. Additional exercises will be introduced and as well as a comprehensive home exercise program upon discharge, if needed, ?to ensure carryover of functional gains achieved in the clinic. This treatment plan has been reviewed and agreement upon by the patient.
--- NOTE | 2023-03-28 09:25 | OPREHPOC ---
Outpatient Therapy Plan of Care This is a Multidisciplinary Plan of Care that may contain components documented by all disciplines (PT, OT, and ST.) OT Problem 1 OT Problem #1 Knowledge Deficit OT Goal 1 Goal 1. Patient to be independent with instructed materials. Target Visit 8 OT Problem 2 OT Problem #2 Pain OT Goal 1 Goal 1. Patient to be independent with non-medication pain management. Target Visit 8 OT Problem 3 OT Problem #3 Impaired Range of Motion OT Goal 1 Goal Patient to increase active ROM of the right UE: 1. Elbow flexion to 135 degrees. 2. Elbow extension to -20 degrees. 3. Forearm supination to 70 degrees. 4. Forearm pronation to 70 degrees. Target Visit 8
--- NOTE | 2023-04-26 11:24 | OTOPPROG ---
Assessment and note entered by Candelario Jara, OTR/Lanny, CHT Evaluation Information Assessment Status Progress Diagnosis Closed fracture dislocation of right elbow Subjective Information Alexandria reports she is now able to use the right hand to floss and brush her teeth. She is reporting improved flexibility and less pain. She is now able to carry items in her right hand and she is now able to change the sheets on her bed. Elbow ROM is improving. Measurements as follows: Flexion 120 deg. Extension -30 deg. Pronation 50 deg. Supination 50 deg. 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 Left core layer machine operator strength 47 lbs. Assessment OT Clinical Summary Patient referred to outpatient OT s/p right elbow ORIF. She is making functional progress and is complaint with all materials. Improved elbow flexion and extension gains have allowed her improved use of her dominant UE for ADL tasks. She continues to have residual weakness and stiffness , however. Continued skilled OT indicated for HEP instruction and progression, functional therapeutic exercise, manual therapy, and modalities to facilitate optimal functional use of the right UE. Plan of Care Interventions Therapeutic Exercise,Manual Therapy,Neuro Re- education,Therapeutic Activities,Hot Pack/Cold Pack,Paraffin OT Services Indicated Yes Treatment Frequency and 1-2x/week for 4 weeks Duration These treatments will address the objective and functional deficits as defined above. The patient will be advanced safely and appropriately in order for the patient to progress towards his/her prior level of function. Additional exercises will be introduced and as well as a comprehensive home exercise program upon discharge, if needed, ?to ensure carryover of functional gains achieved in the clinic. This treatment plan has been reviewed and agreement upon by the patient.
--- NOTE | 2023-05-24 09:48 | OTOPDC ---
Assessment and note entered by Candelario Jara, EZEKIEL/Lanny, CHT Discharge Summary 05/24/23 Assessment Status Discharge Diagnosis Closed fracture dislocation of right elbow Subjective Information Alexandria reports she is using her right UE for ADLs, cleaning, cooking. She reports feeling discouraged being unable to turn her palm down to type or play the piano. Elbow flexion/extension measurements did not change from a month ago. Flexion 120 deg. Extension -30 deg. At the end of our session/post exercise, elbow flexion improved to 130, but it seems to stiffen back up at 120 between exercise sessions. Elbow pronation/supination improved [address]: Pronation 60 deg. Supination 60 deg. 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 Left brew house supervisor strength 47 lbs. Reported Pain Level Pain Score 0: Self Report Additional Pain Score Comments No pain at rest. After exercise her pain increases to 2/10. Assessment OT Clinical Summary Patient has been attending outpatient OT x8 weeks s/p right elbow ORIF. She has progressed to functional ROM of the right elbow with some end range restrictions. She is currently independent with ROM/stretching and strengthening HEP. She is undergoing right TKA next week, so she will be unable to continue OT on her elbow at this time. Discharging with goals met.
== END 2023-06-12 08:57 | disposition home or self-care (01) ==
LOC: ANHOT 09:00
DX: S42.401D Unspecified fracture of lower end of right humerus, subsequent encounter for fracture with routine healing (principal)
CPT/HCPCS: 97018; 97110; 97140; 97165

== ENCOUNTER 2023-05-31 12:58 | Observation (INO) | payer MEDICARE, SELFPAY ==
[2023-05-12 08:11] VITALS: BMI 26.9
--- NOTE | 2023-05-12 08:43 | PC.NURSE ---
Report to the Outpatient Waiting Room, entrance under the green pavilion located off [facility], at time _0600 on date _05/30/23 . Planned Procedure Time: ___30 . Time changes happen often and if your time is changed the preop area will call you the afternoon before. - You and your visitor will be asked to self-screen and do not enter if you have any COVID symptoms. - A mask is optional within the hospital at this time. Patients may have clear liquids (water, carbonated beverages, clear teas, apple juice) until 3 hours prior to surgery with a maximum of 20 ounces. - No food from midnight until time of surgery - Infants may have breast milk until 4 hours before surgery, infant formula 6 hours prior to surgery. - Children will be allowed to drink immediately following surgery. If applicable, please bring a bottle or sippy cup to assist with drinking. Juice, water, soda, and popsicles are readily available. For infants on formula, please bring formula the day of surgery. Pacifiers are allowed. Take the following medications with a SIP of water the morning of surgery: ____ESCITALOPRAM,LEVOTHYROXINE_, MAY TAKE HYDROCODONE IF NEEDED FOR PAIN DO NOT STOP ANY OF YOUR OTHER PRESCRIPTION MEDICATIONS PRIOR TO SURGERY ?EXCEPT THE FOLLOWING Medications to discontinue per physician __DANISQUIS PER DR BURT(SEES ON 05/16/23) ALL VITAMINS/SUPPLEMENTS 3 DAYS PRE OP.LAST DOSE 05/26/23 Please no make-up, nail chinese, hairspray, perfume, deodorant, or body powder the day of surgery. No jewelry (including any body piercings) or valuables the day of surgery, leave them at home. Please take a shower or bath the night before, or the morning of, surgery with an antibacterial soap. Wear comfortable, loose fitting clothing. Children are encouraged to wear pajamas. - Jewelry must be removed prior to entering the operating room. Rings and piercings that are not removed may be cut off. - The hospital will not accept responsibility for valuables. - Please leave all valuables, including medications, at home the day of surgery. If you are going home after surgery, a licensed fuel truck driver must drive you home. - NO public transportation without another adult if you receive anesthesia. - We recommend that an adult stay with you for 24 hours following discharge. - We also recommend that you do not drive, make important decision, drink alcoholic beverages, or take any drugs that were not prescribed by your health care provider for at least 24 hours after your discharge time. For Pediatric surgeries, we recommend two adults accompany the child home. Follow any additional instructions given to you from your surgeon. If you or anyone in your household have experienced Covid symptoms in the past week, please notify your surgeon or the nurse liaison at the phone number below for possible testing. VERBAL AND WRITTEN instructions given to ___PATIENT and asked if any additional questions and then verbalized understanding. Patient advised to call surgeon office or pre surgery nurse liaison [phone] if any additional questions.
[2023-05-12 09:01] VITALS: BP 127/64; PULSE 71; RESP 18; TEMP 36.6; O2SAT 98
[2023-05-30] VITALS (15 sets, daily range): BP systolic 111–158; BP diastolic 50–82; PULSE 73–99; RESP 10–20; TEMP 35.9–37.2; O2SAT 92–100
[2023-05-30] MEDS: ACETAMINOPHEN 500 MG TABLET 1000 MG PO (06:36)
[2023-05-30] MEDS: LACTATED RINGERS 1,000 ML 30 ML IV CONT ×2 (06:45→09:58)
--- NOTE | 2023-05-30 06:45 | WPDANESEPPF ---
Anes - Initial Pre Proc Eval Procedure: Operation Date: 05/30/23 07:30 Proposed Procedures p Right Total Knee Arthroplasty - William Randall MD Date/Time: 05/30/23 06:45 Surgeon: William Randall MD Pre Op Diagnosis: OA right knee Patient Data Age: 73 Gender: F Height: 1.55 m Weight: 64.7 kg Last Vital Signs Temp 36.6 C 05/12/23 09:01 Pulse 71 05/12/23 09:01 Resp 18 05/12/23 09:01 BP 127/64 05/12/23 09:01 Pulse Ox 98 05/12/23 09:01 O2 Del Method Room Air 05/12/23 09:01 Allergies Allergy/AdvReac Type Severity Reaction Status Date / Time Sulfa (Sulfonamide AdvReac Mild Rash Verified 05/30/23 06:24 Antibiotics) Home Medications Medication Instructions Recorded Confirmed Type apixaban 5 mg tablet 5 mg PO BID 08/11/20 05/30/23 History ascorbic acid (vitamin C) 500 mg 1,000 mg PO DAILY 08/11/20 05/30/23 History capsule carisoprodol 250 mg tablet 350 mg PO TID PRN Muscle Spasm 08/11/20 05/16/23 History cholecalciferol (vitamin D3) 50 50 mcg PO DAILY 08/11/20 05/30/23 History mcg (2,000 unit) capsule (Vitamin D3) coenzyme Q10 200 mg capsule (Co 200 mg PO BID 08/11/20 05/30/23 History Q-10) multivitamin (Daily Multi-Vitamin 1 tablet PO DAILY 08/11/20 05/30/23 History tablet) red yeast rice 600 mg capsule 600 mg PO BID 08/11/20 05/30/23 History atorvastatin 10 mg tablet 10 mg PO 2XW 01/28/21 05/30/23 History calcium carbonate 500 mg calcium 500 mg PO DAILY 12/03/21 05/30/23 History (1,250 mg) tablet levothyroxine 50 mcg tablet 50 mcg PO DAILY 12/03/21 05/30/23 History metoprolol succinate 25 mg 12.5 mg PO HS 12/03/21 05/30/23 History tablet,extended release 24 hr furosemide 40 mg tablet (Lasix) 40 mg PO QAM 12/29/21 05/16/23 History hydrocodone 5 mg-acetaminophen 325 1 tablet PO QHS PRN Pain 02/23/23 05/16/23 History mg tablet escitalopram oxalate 10 mg tablet 10 mg PO DAILY 04/19/23 05/30/23 History (Lexapro) oxycodone-acetaminophen 5 mg-325 5 ml PO Q4-6H PRN Pain 04/19/23 05/16/23 History mg/5 mL oral solution omeprazole 10 mg capsule,delayed 10 mg PO DAILY 05/12/23 05/30/23 History release Patient hx anesthesia problems: none Family hx anesthesia problems: none Results Review: All pre-operative results and documents have been reviewed as part of the pre-operative evaluation. [facility] Past Medical History Medical History ADHD Arthritis of right hip Atrial fibrillation ablation 09/05 Breast cancer History of arthritis History of arthroplasty of right elbow Hypothyroidism ARAMIS (obstructive sleep apnea) PONV (postoperative nausea and vomiting) Primary osteoarthritis of right knee Primary osteoarthritis, right shoulder Skin cancer Surgical History Surgical History H/O knee surgery left tka 2009 H/O repair of right rotator cuff 1999 H/O shoulder surgery left, arthroscopy 2013 H/O: hysterectomy History of left shoulder replacement History of total right hip arthroplasty Anterolateral approach January 11, 2022 Family History Family History Mother Diabetes mellitus Cancer History of arthritis Cerebrovascular accident Father History of arthritis Social History Social History Smoking status: Never smoker Second hand tobacco smoke exposure: No Additional smoking assessment comments: DENIES ANY FORM OF TOBACCO USE Alcohol intake: current Drinks per week: 3 Alcohol use details: occasional Substance use: never Substance use type: does not use Lack of Transportation: No Lack of Food: Never True Current Housing: I Have Housing Concerned About Future Housing: No Difficulty Paying Gas/Electric Bills: No Difficulty Paying for Meds: No Currently Unemployed: No Education: Associate
[2023-05-30] MEDS: TRANEXAMIC ACID 1,000MG/ISO100 1,000 MG/100 ML BAG 200 MG IVPB (06:57)
--- NOTE | 2023-05-30 07:20 | WPDHPUPDATE1 ---
History and Physical Update Update Date/Time: 05/30/23 07:20 History and Physical has been reviewed, including an updated exam of the patient. There are NO changes in the patient's condition. Risks, benefits, and alternatives have been discussed and questions answered. Patient agrees to proceed with procedure.
[2023-05-30] MEDS: ceFAZolin 2 GM/D5W 50 ML 2 GM/50 ML BAG IVPB ×2 (07:41→16:28)
--- NOTE | 2023-05-30 10:04 | W.PM.PROC2 ---
Procedure Note - Detailed Date of Procedure 05/30/23 Pre-op Diagnosis OA right knee Post-op Diagnosis Same Procedure Performed right total knee replacement Surgeon William Randall MD Certified Medical Asst Karthik Ferrara Anesthesia General and Regional Description of Procedure The patient was identified and proper site identified. In the preop holding area the anesthesia team performed a right-sided sub sartorial block after which the patient was taken to the operating room and transferred to the OR table positioning supine taking care to pad the torso and extremities. After general anesthetic induction and intubation a nonsterile tourniquet was placed high on the right thigh. The right lower extremity was prepped and draped in the usual sterile fashion. The extremity was exsanguinated and with the knee flexed tourniquet was inflated to 300 mmHg remaining up for approximately 68 minutes. An anterior midline incision was made and a modified medial parapatellar approach was used. Infra and suprapatellar fat pads were excised. Patella was resected leaving 14 mm thickness and prepared for the size 29 round three peg component. Using the intramedullary guide the distal femur was cut in the proper orientation for the size six femoral component. Using the extramedullary guide the tibia was cut perpendicular to the long axis protecting collateral ligaments and popliteal structures. It was sized to a six minus. Flexion and extension gaps were balanced. Trial reduction was undertaken and the weight-bearing line was noted to passed through the center of the joint. Proximal tibia was drilled and punched in the proper orientation for the real component. Trial components were removed. The bone surfaces were washed with pulsatile lavage and dried. The real components were cemented simultaneously. The knee was held in extension and the patella held clamped until the cement had cured. Excess cement was removed from the joint. After trialing it was determined that the 10 mm insert gave full range of motion from 0-120 degrees of flexion and the patella tracked in the femoral groove with no lift-off. After final lavage the joint the real size 10 insert was placed and secured with a locking bar. A Betadine and saline wash was placed into the wound and allowed to sit for approximately 3 minutes and then evacuated. Periarticular tissues were infiltrated with 60 cc of the arthroplasty solution. Surgicel powder was applied into the wound during the closure. The extensor mechanism was repaired with #2 Vicryl suture and 0 looped PDS suture. Subcu was reapproximated with #2 Vicryl with 3-0 Monocryl, 2-0 Quill and tissue adhesive for the skin. A sterile dressing was applied. She tolerated the procedure well, was awakened and extubated, transferred to the bed and was taken to recovery area in stable condition. There were no known intraoperative complications. Perioperative antibiotics were administered. Estimated Blood Loss 150 Tourniquet Time 68 Drains No Packing No Pathology None sent Complications No immediate complications Condition Stable Disposition PACU [facility] Billing Surgery - Charge Forward: Surgery Billing ([id number])
--- NOTE | 2023-05-30 10:05 | WPDANESPNB ---
Anes - Peripheral Nerve Block Date/Time: 05/30/23 10:05 I have discussed with the patient/family/POA the placement of a peripheral nerve block for post-operative pain management, including associated risks, benefits, complications, and side effects. Alternative methods of post-operative analgesia were detailed. Questions were solicited and answers provided to the satisfaction of the patient/family/POA. Time-Out: A pre-procedural Time-Out was completed immediately before starting the procedure and confirmed: Patient Identification, Site, Procedure, Patient Position and the Availability of Requisite Equipment. Clinical Indications: Acute post-operative pain management requested by the operative surgeon. Nerve Block Insertion Note Anes-nerve block: femoral right Patient position: supine Skin prep: chlorhexidine Needle: 22 gauge, stimulating, insulated echogenic needle. Needle length: 50 mm Technique: nerve stimulation lost at (mA) (0.4) Injectate: bupivacaine 0.5% with epi 5 mcg/ml (15cc no epi) and dexamethasone (mg) (4) Observations: tolerated well Complications: none Procedure start time:: 721 Procedure end time:: 725
[2023-05-30] MEDS: fentaNYL CITRATE INJ (*CRX) 100 MCG/2 ML VIAL 25 MCG IV PUSH ×8 (10:11→11:00)
--- NOTE | 2023-05-30 11:30 | ADMGEN ---
This patient, Alexandria Howe, was admitted to [facility] Surg Room 301-01 at 1130. Patient/family oriented to hospital policies and general routines including ID bracelet, bed and alarms, visiting hours, pain management, procedures, bathroom and other care routines, personal items, smoking policy, room service/diet, and visiting hours. Information on how to activate the Rapid Response Team has been discussed. Patient/Family are encouraged to report perceived risks to care and to ask questions if they do not understand what they are told or what they should do.
[2023-05-30] MEDS: oxyCODONE/ACETAMINOPHEN (*CRX) 5-325 MG TABLET 1 TABLET PO ×3 (12:13→20:16)
[2023-05-30] MEDS: SODIUM CHLORIDE 0.9% IV 1,000 ML 125 ML IV CONT (12:13)
--- NOTE | 2023-05-30 12:38 | WPDCN ---
Assessment and Plan Assessment and plan (1) Primary osteoarthritis of right knee: Code(s): M17.11 - Unilateral primary osteoarthritis, right knee Status: Chronic Assessment and Plan: Postoperative day 0 status post right total knee arthroplasty. Wound care, pain control, and DVT prophylaxis deferred to the orthopedic surgeon. Agree with PT/OT. Check hemoglobin and hematocrit in a.m.. (2) Paroxysmal atrial fibrillation: Code(s): I48.0 - Paroxysmal atrial fibrillation Status: Acute Assessment and Plan: Status post cardiac ablation in August 2021. Resume metoprolol and apixaban tomorrow. (3) Hypothyroidism: Code(s): E03.9 - Hypothyroidism, unspecified Status: Acute Assessment and Plan: Continue levothyroxine and check TSH. (4) Hyperlipidemia: Code(s): E78.5 - Hyperlipidemia, unspecified Status: Acute Assessment and Plan: Continue statin check LFTs in a.m. Plan Thank you for allowing us to participate in this patient's care. Please do not hesitate to contact us with any questions. HPI Data of Consult Date/Time: 05/30/23 13:00 Requesting Physician: William Randall MD Consult Narrative Reason for consult: Postoperative medical management. Narrative: This is a pleasant 73-year-old female with osteoarthritis, paroxysmal atrial fibrillation status post cardiac ablation on chronic anticoagulation, obstructive sleep apnea, and hypothyroidism whom hospitalist service has been consulted for help managing her medical conditions postoperatively. She has had longstanding pain in her right knee which has not been amenable to conservative outpatient treatment and thus she elected for replacement today. Her surgery was performed under general and regional anesthesia with no immediate complications documented an estimated blood loss of 150 mL. Postoperatively she has done quite well and her pain has been pretty well controlled. She has been up to the chair and is eating without issue. She denies postoperative fever, chills, chest pain, shortness a breath, nausea, and vomiting. She also denies paresthesias, skin color, and temperature changes distal to the surgical site. On discharge she will return to the home she shares with her . He is in failing health and she is his primary motorcycle deliverer. She is hopeful to have help from her family and friends in the next coming days. Regarding her chronic medical conditions, she is on apixaban for stroke prophylaxis given history of paroxysmal atrial fibrillation. That has been held since May 26 and will be resumed tomorrow. She is on low-dose metoprolol for AFib as well; she denies diagnosis of hypertension. She believes her hypothyroidism is under control on levothyroxine. She has sleep apnea and previously were dental appliance however is now ill-fitting and she is hoping to get another appointment to have another made. Review of Systems Review of Systems: Twelve systems were reviewed and are negative except for as per HPI. [facility] Past Medical History Medical History (Updated 05/30/23 @ 12:54 by Jazzy Johnson PA-C) ADHD Arthritis Basal cell carcinoma of skin Cancer of left breast (2002) Status post chemoradiation. Hyperlipidemia Hypothyroidism Obstructive sleep apnea Previously used oral appliance. Paroxysmal atrial fibrillation Post cardiac ablation in August 2021. Skin cancer Surgical History Surgical History (Updated 05/30/23 @ 12:52 by Jazzy Johnson PA-C) History of arthroplasty of left knee (2009) History of arthroplasty of right elbow History of arthroscopy of left knee (2002) History of arthroscopy of left shoulder (2013) History of basal cell carcinoma excision History of cardiac radiofrequency ablation (08/2021) History of hysterectomy History of left shoulder replacement History of repair of right rotator cuff (1999) History of right breast biopsy (1989) Hist
[2023-05-30] MEDS: SENNA/DOCUSATE SODIUM TABLET 2 TAB PO (16:29)
[2023-05-30] MEDS: METOPROLOL SUCCINATE EXT REL 12.5 MG TABCR PO (20:17)
[2023-05-30] MEDS: APIXABAN 5 MG TABLET PO (20:17)
[2023-05-31] VITALS (7 sets, daily range): BP systolic 110–128; BP diastolic 48–56; PULSE 63–88; RESP 16–18; TEMP 35.7–36.6; O2SAT 96–99
--- NOTE | ~2023-05-31 | XR_ITS ---
EXAMINATION: [id number] DATE: 05/30/2023 10:32 INDICATION: Right total knee arthroplasty. Postop. TECHNIQUE: 2 views of right knee were obtained. COMPARISON: Right knee radiographs 02/19/2023 FINDINGS: There is a total right knee arthroplasty with patellar resurfacing in near-anatomic alignme nt. No fracture. There is gas in the joint and soft tissues, consistent with recent surgery. IMPRESSION: 1. Total right knee arthroplasty in near-anatomic alignment. Reviewed, dictated and finalized at location A.
[2023-05-31] MEDS: oxyCODONE HCL (*CRX) 5 MG TAB IR PO ×3 (00:22→09:28)
[2023-05-31] MEDS: oxyCODONE/ACETAMINOPHEN (*CRX) 5-325 MG TABLET 1 TABLET PO ×3 (00:22→09:30)
[2023-05-31] MEDS: ceFAZolin 2 GM/D5W 50 ML 2 GM/50 ML BAG IVPB ×2 (00:23→09:25)
[2023-05-31] MEDS: LEVOTHYROXINE SODIUM 50 MCG TABLET PO (04:44)
[2023-05-31 06:18] LABS: Hematocrit 29.6 % (37.0-47.0); Hemoglobin 9.6 g/dL (12.0-15.0); Mean Corpuscular HGB Conc 32.4 g/dl (32-36); Mean Corpuscular Hemoglobin 29.6 pg (26-34); Mean Corpuscular Volume 91.4 fl (80-100); Mean Platelet Volume 9.3 fl (7.4-10.4); Platelet Count Result 254 k/mm3 (150-375); Red Blood Count 3.24 M/mm3 (4.2-5.4); Red Cell Distribution Width 13.3 % (11.5-14.5)
[2023-05-31 06:46] LABS: Alanine Aminotransferase 20 U/L (6-35); Albumin Level 3.3 g/dL (3.5-5.1); Alkaline Phosphatase 42 U/L (38-126); Anion Gap 3 mmol/L (8-16); Aspartate Amino Transferase 28 U/L (14-36); Bilirubin,Total 0.5 mg/dL (0.2-1.3); Blood Urea Nitrogen 10 mg/dL (7-17); Calcium 8.1 mg/dL (8.4-10.2); Carbon Dioxide 28 mmol/L (22-30); Chloride 100 mmol/L (98-107); Estimated CRCL calculation 59 ml/min; Estimated Glomerular Filt Rate > 60; Glucose 98 mg/dL (65-110); Magnesium 2.1 mg/dL (1.6-2.3); Potassium 3.9 mmol/L (3.4-5.0); Sodium 131 mmol/L (137-145)
[2023-05-31 07:26] LABS: Thyroid Stimulating Hormone Reflex 0.915 uIU/mL (0.465-4.68)
[2023-05-31] MEDS: PANTOPRAZOLE SOD SESQUIHYDRATE 20 MG TAB PO (09:27)
[2023-05-31] MEDS: CALCIUM CARBONATE (OSCAL) 500 MG TABLET PO (09:28)
[2023-05-31] MEDS: CHOLECALCIFEROL 1,000 UNITS TABLET 2000 UNITS PO (09:29)
[2023-05-31] MEDS: SENNA/DOCUSATE SODIUM TABLET 2 TAB PO ×2 (09:30→16:59)
[2023-05-31] MEDS: MULTIVITAMINS THERAPEUTIC TAB (*BKC) 1 TABLET PO (09:30)
[2023-05-31] MEDS: APIXABAN 5 MG TABLET PO ×2 (09:30→20:56)
[2023-05-31] MEDS: ESCITALOPRAM OXALATE 10 MG TABLET PO (09:31)
[2023-05-31] MEDS: ASCORBIC ACID 500 MG TABLET 1000 MG PO (09:31)
--- NOTE | 2023-05-31 12:26 | PM.IMPN ---
Progress Note: A&P Assessment and Plan (1) Primary osteoarthritis of right knee: Code(s): M17.11 - Unilateral primary osteoarthritis, right knee Status: Chronic Assessment and Plan: Postoperative day 1 status post right total knee arthroplasty. Wound care, pain control, and DVT prophylaxis deferred to the orthopedic surgeon. Agree with PT/OT. Patient's H&H has dropped. Will trend and monitor. (2) Paroxysmal atrial fibrillation: Code(s): I48.0 - Paroxysmal atrial fibrillation Status: Acute Assessment and Plan: Status post cardiac ablation in August 2021. Resume metoprolol and apixaban tomorrow. (3) Hypothyroidism: Code(s): E03.9 - Hypothyroidism, unspecified Status: Acute Assessment and Plan: Continue levothyroxine and TSH with a normal limits (4) Hyperlipidemia: Code(s): E78.5 - Hyperlipidemia, unspecified Status: Acute Assessment and Plan: Continue statin Plan Thank you for allowing us to participate in this patient's care. Please do not hesitate to contact us with any questions. Subjective Date/time seen: 05/31/23 12:26 Interval history: Patient continues to have right knee pain this is not well controlled. Orthopedic surgeon did adjust patient's pain medication. According to staff patient will be kept in hospital until pain management is tighter controlled. Other than patient's right knee pain she has no other complaints. Will continue to follow with you. Exam Narrative: GENERAL: Comfortable, no acute distress HENMT: moist mucous membranes EYES: EOM intact b/l NECK: no lymphadenopathy RESPIRATORY: clear to auscultation CARDIO: RRR GI: soft, nontender, bowel sounds present SKIN: no rashes EXTREMITIES: right knee with Tegaderm dry and intact with ice pack over the top Objective Data Vital Signs Vital Signs: Vital Signs - 24 hr 05/30/23 13:24 05/30/23 13:13 05/30/23 18:52 Temperature 98.3 F Pulse Rate 83 Respiratory Rate 20 Blood Pressure 115/57 L Pulse Oximetry 97 Oxygen Delivery Room Air Room Air 05/30/23 20:17 05/30/23 21:13 05/30/23 20:00 Temperature 97.9 F Pulse Rate 80 73 73 Respiratory Rate 16 16 Blood Pressure 119/50 L Pulse Oximetry 95 95 Oxygen Delivery Room Air 05/31/23 00:32 05/31/23 05:13 Temperature 97.5 F L 97.5 F L Pulse Rate 63 66 Respiratory Rate 18 16 Blood Pressure 114/56 L 110/48 L Pulse Oximetry 99 96 Oxygen Delivery Intake/Output Intake/Output: Intake & Output 05/28/23 05/29/23 05/30/23 05/31/23 23:59 23:59 23:59 23:59 Intake Total 1210 650 Balance 1210 650 Meds/Results Medications: Active Medications Generic Name Dose Route Start Last Admin Trade Name Freq PRN Reason Stop Dose Admin Acetaminophen 1,000 mg 05/31/23 14:00 Acetaminophen 500 Mg Tablet PO Q8HR [facility] Apixaban 5 mg 05/30/23 21:00 05/31/23 09:30 Apixaban 5 Mg Tablet PO 5 mg Q12HR [facility] Administration Ascorbic Acid 1,000 mg 05/31/23 09:00 05/31/23 09:31 Ascorbic Acid 500 Mg Tablet PO 1,000 mg DAILY KUMAR Administration Atorvastatin Calcium 10 mg 06/02/23 09:00 Atorvastatin 10 Mg Tablet PO MoFr@0900 [facility] Calcium Carbonate 500 mg 05/31/23 09:00 05/31/23 09:28 Calcium Carbonate (Oscal) 500 Mg Tablet PO 500 mg DAILY [facility] Administration Carisoprodol 350 mg 05/30/23 12:00 Carisoprodol (*Crx) 350 Mg Tablet PO TID PRN Muscle Spasm Escitalopram Oxalate 10 mg 05/31/23 09:00 05/31/23 09:31 Escitalopram Oxalate 10 Mg Tablet PO 10 mg DAILY KUMAR Administration Furosemide 40 mg 05/31/23 09:00 Furosemide 40 Mg Tablet PO DAILY PRN Edema Levothyroxine Sodium 50 mcg 05/31/23 06:30 05/31/23 04:44 Levothyroxine Sodium 50 Mcg Tablet PO 50 mcg DAILY@0630 [facility] Administration Metoprolol Succinate 12.5 mg 05/30/23 21:00 05/30/23 20:17 Metoprolol Bergeron
[2023-05-31 12:53] LABS: Hematocrit 32.9 % (37.0-47.0)
[2023-05-31] MEDS: TAPENTADOL HCL (*CRX) 50 MG TABLET PO (12:53)
[2023-05-31] MEDS: ACETAMINOPHEN 500 MG TABLET 1000 MG PO ×2 (12:55→20:56)
--- NOTE | 2023-05-31 13:30 | PM.PNORT ---
Progress Note: A&P Assessment and Plan (1) Status post total right knee replacement: Code(s): Z96.651 - Presence of right artificial knee joint Status: Acute Plan 73-year-old female postop day 1 after right total knee arthroplasty. Progressing a little slower with therapy due to the amount of postoperative pain in the knee. She was changed from Percocet to Nucynta with hopes of helping pain control. She also struggled with pain over the 1st couple days when her left knee was replaced and had to stay in hospital for about 4-5 days. She will continue to mobilize to the best of her ability with physical therapy. Hopeful that she can be discharged in the next day or so. Appreciate hospitalist consult. Subjective Subjective Date/Time Seen: 05/31/23 13:30 Interval history: 73-year-old female postop day 1 after right total knee arthroplasty. Struggling quite a bit with pain, especially with range of motion. She did have to stay in the hospital about 4-5 days after her total knee on the left side due to pain. She also had her pain medication changed from Percocet to Nucynta and feels that it may not be working as well. Review of Systems Constitutional: Constitutional: Denies chills, Denies fever(s), Denies night sweats and Denies weakness Eyes: Eyes: Denies change in vision ENT: Reports Normal hearing present and Denies dizziness Cardiovascular: Cardiovascular: Denies chest pain, Denies lightheadedness and Denies dyspnea on exertion Respiratory: Respiratory: Denies dyspnea on exertion Gastrointestinal: Gastrointestinal: Denies abdominal pain Genitourinary: Genitourinary: Denies dysuria Musculoskeletal: Musculoskeletal: Reports no additional musculoskeletal complaints and Reports as per HPI Integumentary/Breasts: Skin/Breast: Denies lesions and Denies wounds Neurologic: Reports Normal hearing present, Denies confusion, Denies dizziness and Denies weakness Psychiatric: Psychiatric: Denies confusion and Denies paranoia Hematologic/Lymphatic: Hematologic/Lymphatic: Denies easy bleeding and Denies easy bruising Exam Const: General: cooperative, comfortable and no acute distress; No confusion Orientation/consciousness: No confusion HENMT: Head: normal to inspection Ears: hearing grossly normal bilaterally Mouth: Yes moist mucous membranes Eyes: General: appearance normal, both eyes and all related structures Resp: Effort & Inspection: normal respiratory effort and able to speak in complete sentences GI: Inspection: normal to inspection Neuro: General: No confusion Cranial nerves: Yes Normal hearing present Speech: normal speech Sensory Exam: normal sensation Extrem: Other: Exam of the right knee shows a clean and dry surgical dressing. Swelling of the right lower extremity consistent with the recent right knee total arthroplasty. There is ecchymosis over the right knee. She is able to dorsiflex and plantar flex her right foot without difficulty. Calves negative. Neurovascular status right lower extremity is intact. Psych: Mental Status: mental status grossly normal Objective Data Vital Signs Vital Signs: Vital Signs - 24 hr 05/30/23 18:52 05/30/23 20:17 05/30/23 21:13 Temperature 97.9 F Pulse Rate 80 73 Respiratory Rate 16 Blood Pressure 119/50 L Pulse Oximetry 95 Oxygen Delivery Room Air 05/30/23 20:00 05/31/23 00:32 05/31/23 05:13 Temperature 97.5 F L 97.5 F L Pulse Rate 73 63 66 Respiratory Rate 16 18 16 Blood Pressure 114/56 L 110/48 L Pulse Oximetry 95 99 96 Oxygen Delivery Room Air 05/31/23 12:44 Temperature 98 F Pulse Rate 85 Respiratory Rate 18 Blood Pressure 128/52 L Pulse Oximetry 99 Oxygen Delivery Intake/Output Intake/Output: Intake & Output 05/28/23 05/29/23 05/30/23 05/31/23 23:59 23:59 23:59 23:59 Intake Total 1210 1250 Balance 1210 1250 Meds/Results Medications: Active Medications Generic Name Dose
[2023-05-31] MEDS: TAPENTADOL HCL (*CRX) 50 MG TABLET 100 MG PO ×2 (16:57→20:55)
[2023-05-31] MEDS: METOPROLOL SUCCINATE EXT REL 12.5 MG TABCR PO (20:56)
[2023-06-01] MEDS: TAPENTADOL HCL (*CRX) 50 MG TABLET 100 MG PO ×4 (04:05→17:58)
[2023-06-01 04:20] VITALS: BP 101/48; PULSE 76; RESP 20; TEMP 35.8; O2SAT 96
[2023-06-01] MEDS: LEVOTHYROXINE SODIUM 50 MCG TABLET PO (06:05)
[2023-06-01] MEDS: ACETAMINOPHEN 500 MG TABLET 1000 MG PO ×3 (06:05→22:26)
[2023-06-01 06:27] LABS: Hematocrit 30.4 % (37.0-47.0); Hemoglobin 9.8 g/dL (12.0-15.0); Mean Corpuscular HGB Conc 32.2 g/dl (32-36); Mean Corpuscular Hemoglobin 29.2 pg (26-34); Mean Corpuscular Volume 90.5 fl (80-100); Mean Platelet Volume 9.9 fl (7.4-10.4); Platelet Count Result 261 k/mm3 (150-375); Red Blood Count 3.36 M/mm3 (4.2-5.4); Red Cell Distribution Width 13.3 % (11.5-14.5); White Blood Count 5.8 K/mm3 (4.5-10.0)
[2023-06-01 07:05] LABS: Anion Gap 6 mmol/L (8-16); Blood Urea Nitrogen 11 mg/dL (7-17); Calcium 8.1 mg/dL (8.4-10.2); Carbon Dioxide 29 mmol/L (22-30); Chloride 99 mmol/L (98-107); Estimated CRCL calculation 70 ml/min; Estimated Glomerular Filt Rate > 60; Glucose 97 mg/dL (65-110); Sodium 134 mmol/L (137-145)
[2023-06-01] MEDS: MULTIVITAMINS THERAPEUTIC TAB (*BKC) 1 TABLET PO (08:25)
[2023-06-01] MEDS: ASCORBIC ACID 500 MG TABLET 1000 MG PO (08:25)
[2023-06-01] MEDS: polyethylene glycoL 3350 17 GM POWD.PACK PO (08:25)
[2023-06-01] MEDS: SENNA/DOCUSATE SODIUM TABLET 2 TAB PO ×2 (08:25→18:00)
[2023-06-01] MEDS: CHOLECALCIFEROL 1,000 UNITS TABLET 2000 UNITS PO (08:26)
[2023-06-01] MEDS: PANTOPRAZOLE SOD SESQUIHYDRATE 20 MG TAB PO (08:26)
[2023-06-01] MEDS: APIXABAN 5 MG TABLET PO ×2 (08:27→22:25)
[2023-06-01] MEDS: ESCITALOPRAM OXALATE 10 MG TABLET PO (08:27)
[2023-06-01] MEDS: CALCIUM CARBONATE (OSCAL) 500 MG TABLET PO (08:27)
--- NOTE | 2023-06-01 11:13 | PM.IMPN ---
Progress Note: A&P Assessment and Plan (1) Primary osteoarthritis of right knee: Code(s): M17.11 - Unilateral primary osteoarthritis, right knee Status: Chronic Assessment and Plan: Postoperative day 1 status post right total knee arthroplasty. Wound care, pain control, and DVT prophylaxis deferred to the orthopedic surgeon. Agree with PT/OT. Patient's H&H has dropped. Will trend and monitor. (2) Paroxysmal atrial fibrillation: Code(s): I48.0 - Paroxysmal atrial fibrillation Status: Acute Assessment and Plan: Status post cardiac ablation in August 2021. Resume metoprolol and apixaban tomorrow. (3) Hypothyroidism: Code(s): E03.9 - Hypothyroidism, unspecified Status: Acute Assessment and Plan: Continue levothyroxine and TSH with a normal limits (4) Hyperlipidemia: Code(s): E78.5 - Hyperlipidemia, unspecified Status: Acute Assessment and Plan: Continue statin Plan Thank you for allowing us to participate in this patient's care. Please do not hesitate to contact us with any questions. Subjective Date/time seen: 06/01/23 11:13 Interval history: Patient doing better today. Patient is up in the chair and in good spirits. She continues to have pain in her right knee although she feels as if it is manageable with p.o. pain medication. She has no other medical concerns. Okay to discharge per hospitalist team. Exam Narrative: GENERAL: Comfortable, no acute distress HENMT: moist mucous membranes EYES: EOM intact b/l NECK: no lymphadenopathy RESPIRATORY: clear to auscultation CARDIO: RRR GI: soft, nontender, bowel sounds present SKIN: no rashes EXTREMITIES: right knee with Tegaderm dry and intact with ice pack over the top Objective Data Vital Signs Vital Signs: Vital Signs - 24 hr 05/31/23 12:44 05/31/23 20:56 05/31/23 20:00 Temperature 98 F Pulse Rate 85 76 76 Respiratory Rate 18 18 Blood Pressure 128/52 L Pulse Oximetry 99 99 Oxygen Delivery Room Air 05/31/23 21:15 05/31/23 23:20 06/01/23 04:20 Temperature 96.3 F L 96.5 F L Pulse Rate 88 76 Respiratory Rate 16 20 Blood Pressure 127/52 L 101/48 L Pulse Oximetry 98 98 96 Oxygen Delivery Room Air Intake/Output Intake/Output: Intake & Output 05/29/23 05/30/23 05/31/23 06/01/23 23:59 23:59 23:59 23:59 Intake Total 1210 1370 270 Balance 1210 1370 270 Meds/Results Medications: Active Medications Generic Name Dose Route Start Last Admin Trade Name Freq PRN Reason Stop Dose Admin Acetaminophen 1,000 mg 05/31/23 14:00 06/01/23 06:05 Acetaminophen 500 Mg Tablet PO 1,000 mg Q8HR KUMAR Administration Apixaban 5 mg 05/30/23 21:00 06/01/23 08:27 Apixaban 5 Mg Tablet PO 5 mg Q12HR KUMAR Administration Ascorbic Acid 1,000 mg 05/31/23 09:00 06/01/23 08:25 Ascorbic Acid 500 Mg Tablet PO 1,000 mg DAILY KUMAR Administration Atorvastatin Calcium 10 mg 06/02/23 09:00 Atorvastatin 10 Mg Tablet PO MoFr@0900 [facility] Calcium Carbonate 500 mg 05/31/23 09:00 06/01/23 08:27 Calcium Carbonate (Oscal) 500 Mg Tablet PO 500 mg DAILY [facility] Administration Carisoprodol 350 mg 05/30/23 12:00 Carisoprodol (*Crx) 350 Mg Tablet PO TID PRN Muscle Spasm Escitalopram Oxalate 10 mg 05/31/23 09:00 06/01/23 08:27 Escitalopram Oxalate 10 Mg Tablet PO 10 mg DAILY KUMAR Administration Furosemide 40 mg 05/31/23 09:00 Furosemide 40 Mg Tablet PO DAILY PRN Edema Levothyroxine Sodium 50 mcg 05/31/23 06:30 06/01/23 06:05 Levothyroxine Sodium 50 Mcg Tablet PO 50 mcg DAILY@0630 [facility] Administration Metoprolol Succinate 12.5 mg 05/30/23 21:00 05/31/23 20:56 Metoprolol Succinate Ext Rel 12.5 Mg Tabcr PO 12.5 mg HS [facility] Administration Multivitamins Therapeutic 1 tablet 05/31/23 09:00 06/01/23 08:25 Multivitamins Therapeutic Tab (*Bkc)
--- NOTE | 2023-06-01 15:36 | PM.PNORT ---
Progress Note: A&P Assessment and Plan (1) Status post total right knee replacement: Code(s): Z96.651 - Presence of right artificial knee joint Status: Acute Plan 73-year-old female postop day 2 after right total knee arthroplasty. Progressing a little slower with therapy due to the amount of postoperative pain in the knee. Nucynta is working better today after it was increased to 100 mg. She will continue to mobilize to the best of her ability with physical therapy. Likely be discharged tomorrow depending on how she is doing. Subjective Subjective Date/Time Seen: 06/01/23 15:36 Interval history: 73-year-old female postop day 2 after right total knee arthroplasty. Still struggling quite a bit with pain, especially with range of motion. Range of motion is full in extension but tough to get her anna marie 30/40 degrees of flexion. She reports she is unable to left her leg out of bed and is using a gait belt to help with ambulation. Nucynta is providing better control with pain today. Review of Systems Constitutional: Constitutional: Denies chills, Denies fever(s), Denies night sweats and Denies weakness Eyes: Eyes: Denies change in vision ENT: Reports Normal hearing present and Denies dizziness Cardiovascular: Cardiovascular: Denies chest pain, Denies lightheadedness and Denies dyspnea on exertion Respiratory: Respiratory: Denies dyspnea on exertion Gastrointestinal: Gastrointestinal: Denies abdominal pain Genitourinary: Genitourinary: Denies dysuria Musculoskeletal: Musculoskeletal: Reports no additional musculoskeletal complaints and Reports as per HPI Integumentary/Breasts: Skin/Breast: Denies lesions and Denies wounds Neurologic: Reports Normal hearing present, Denies confusion, Denies dizziness and Denies weakness Psychiatric: Psychiatric: Denies confusion and Denies paranoia Hematologic/Lymphatic: Hematologic/Lymphatic: Denies easy bleeding and Denies easy bruising Exam Const: General: cooperative, comfortable and no acute distress; No confusion Orientation/consciousness: No confusion HENMT: Head: normal to inspection Ears: hearing grossly normal bilaterally Mouth: Yes moist mucous membranes Eyes: General: appearance normal, both eyes and all related structures Resp: Effort & Inspection: normal respiratory effort and able to speak in complete sentences GI: Inspection: normal to inspection Neuro: General: No confusion Cranial nerves: Yes Normal hearing present Speech: normal speech Sensory Exam: normal sensation Extrem: Other: Exam of the right knee shows a clean and dry surgical dressing. Swelling of the right lower extremity consistent with the recent right knee total arthroplasty. There is ecchymosis over the right knee. She is able to dorsiflex and plantar flex her right foot without difficulty. ROM at the knee is from full extension to about 40 degrees flexion. Calves negative. Neurovascular status right lower extremity is intact. Psych: Mental Status: mental status grossly normal Objective Data Vital Signs Vital Signs: Vital Signs - 24 hr 05/31/23 20:56 05/31/23 20:00 05/31/23 21:15 Temperature 96.3 F L Pulse Rate 76 76 88 Respiratory Rate 18 16 Blood Pressure 127/52 L Pulse Oximetry 99 98 Oxygen Delivery Room Air 05/31/23 23:20 06/01/23 04:20 Temperature 96.5 F L Pulse Rate 76 Respiratory Rate 20 Blood Pressure 101/48 L Pulse Oximetry 98 96 Oxygen Delivery Room Air Intake/Output Intake/Output: Intake & Output 05/29/23 05/30/23 05/31/23 06/01/23 23:59 23:59 23:59 23:59 Intake Total 1210 1370 490 Balance 1210 1370 490 Meds/Results Medications: Active Medications Generic Name Dose Route Start Last Admin Trade Name Freq PRN Reason Stop Dose Admin Acetaminophen 1,000 mg 05/31/23 14:00 06/01/23 12:26 Acetaminophen 500 Mg Tablet PO 1,000 mg Q8HR KUMAR Administration Apixaban 5 mg 05/30/23 21:00 06/01/23 08:27
[2023-06-01 22:00] VITALS: BP 114/54; PULSE 86; RESP 16; TEMP 36.2; O2SAT 97
[2023-06-01 22:26] VITALS: PULSE 86
[2023-06-01] MEDS: METOPROLOL SUCCINATE EXT REL 12.5 MG TABCR PO (22:26)
[2023-06-01] MEDS: carisoprodoL (*CRX) 350 MG TABLET PO (22:26)
[2023-06-02] MEDS: TAPENTADOL HCL (*CRX) 50 MG TABLET 100 MG PO ×3 (02:50→14:25)
[2023-06-02 05:34] VITALS: BP 115/45; PULSE 80; RESP 16; TEMP 36.3; O2SAT 98
[2023-06-02] MEDS: ACETAMINOPHEN 500 MG TABLET 1000 MG PO ×2 (05:43→14:26)
[2023-06-02] MEDS: LEVOTHYROXINE SODIUM 50 MCG TABLET PO (05:44)
[2023-06-02] MEDS: APIXABAN 5 MG TABLET PO (08:41)
[2023-06-02] MEDS: MULTIVITAMINS THERAPEUTIC TAB (*BKC) 1 TABLET PO (08:41)
[2023-06-02] MEDS: ESCITALOPRAM OXALATE 10 MG TABLET PO (08:41)
[2023-06-02] MEDS: PANTOPRAZOLE SOD SESQUIHYDRATE 20 MG TAB PO (08:42)
[2023-06-02] MEDS: CALCIUM CARBONATE (OSCAL) 500 MG TABLET PO (08:42)
[2023-06-02] MEDS: ASCORBIC ACID 500 MG TABLET 1000 MG PO (08:43)
[2023-06-02] MEDS: ATORVASTATIN 10 MG TABLET PO (08:44)
[2023-06-02] MEDS: CHOLECALCIFEROL 1,000 UNITS TABLET 2000 UNITS PO (08:44)
[2023-06-02] MEDS: FUROSEMIDE 40 MG TABLET PO (08:44)
[2023-06-02] MEDS: SENNA/DOCUSATE SODIUM TABLET 2 TAB PO (08:44)
--- NOTE | 2023-06-02 11:12 | PM.DS ---
DS: Admitting Diagnosis Discharge Date June 02, 2023 Admitting Diagnosis Osteoarthritis left knee DS: Discharge Diagnosis Discharge Diagnosis (1) Status post total right knee replacement: Code(s): Z96.651 - Presence of right artificial knee joint Status: Resolved Plan Plan discharge home today. Home Health begins tomorrow. Has follow-up with me at the two week point from surgery. She was instructed to call prior to follow-up but also instructed to read all of her materials prior to calling because many her answers will likely be found in those materials, both from the hospital and the office. DS: Summary Hospital Course Hospital Course: Patient underwent total knee replacement on May 30, 2023. She made slow but steady progress and by postop day three was ready to go home. Surgery was discussed with her in detail as was the home going instructions. Status at Discharge Functional status at discharge: uses cane/walker Overall status at discharge: patient is not back to baseline Time Spent with Patient Time attestation: Total time spent providing and/or coordinating discharge services: Exam Const: General: cooperative, no acute distress and alert Nutritional Appearance: other Orientation/consciousness: patient oriented x3 Limitations: no limitations HENMT: Head: normal to inspection Chest: Chest palpation & inspection: normal inspection of the chest Resp: Effort & Inspection: normal respiratory effort and able to speak in complete sentences GI: Inspection: other (Nondistended) Neuro: General: patient oriented x3 Cognition (Neuro): normal cognition Speech: normal speech Extrem: General: normal to inspection and other Other: Exam of the right knee reveals a very small spot of drainage on the dressing distal portion of the wound. Moderate bruising and swelling about the knee. Grossly motor and sensory function intact. Knee is stable. Psych: Appearance: grossly normal Mental Status: mental status grossly normal Radiology Reports: Comments: EXAMINATION: [id number] DATE: 05/30/2023 10:32 INDICATION: Right total knee arthroplasty. Postop. TECHNIQUE: 2 views of right knee were obtained. COMPARISON: Right knee radiographs 02/19/2023 FINDINGS: There is a total right knee arthroplasty with patellar resurfacing in near-anatomic alignment. No fracture. There is gas in the joint and soft tissues, consistent with recent surgery. IMPRESSION: 1. Total right knee arthroplasty in near-anatomic alignment. Reviewed, dictated and finalized at location A. DS: Data Procedures/Treatments: Participated in physical therapy during stay. Discharge Plan Discharge Attending physician on discharge: William Randall Consulting providers: Jazzy Johnson Discharging Clinician: William Randall Patient Disposition: Home Health Service Activity: other - see discharge instructions Diet: heart healthy Wound Care Instructions: other - see discharge instructions Discharge Instructions: 3 times daily for 20 minutes each time, reclining in bed with ice packs over the incision and a pillow underneath the calf of the affected leg, not under the knee. Your wound is glued so it is okay to remove the dressing, get into the shower and get the wound wet in two days. You will be sent home with three extra dressings. These will need to be changed every four days. Be sure to read through all the information that came from a my office and the hospital. Most of the answers you will need can be found that material. Call the office with any questions that you cannot find answers to, or concerns you may have. After the Xarelto is completed, start taking one coated 325 mg aspirin daily and do this for four more weeks. Please call [facility] at as soon
--- NOTE | 2023-06-02 11:26 | PM.IMPN ---
Progress Note: A&P Assessment and Plan (1) Primary osteoarthritis of right knee: Code(s): M17.11 - Unilateral primary osteoarthritis, right knee Status: Chronic Assessment and Plan: Postoperative day 1 status post right total knee arthroplasty. Wound care, pain control, and DVT prophylaxis deferred to the orthopedic surgeon. Agree with PT/OT. Patient's H&H has dropped. Will trend and monitor. (2) Paroxysmal atrial fibrillation: Code(s): I48.0 - Paroxysmal atrial fibrillation Status: Acute Assessment and Plan: Status post cardiac ablation in August 2021. Resume metoprolol and apixaban tomorrow. (3) Hypothyroidism: Code(s): E03.9 - Hypothyroidism, unspecified Status: Acute Assessment and Plan: Continue levothyroxine and TSH with a normal limits (4) Hyperlipidemia: Code(s): E78.5 - Hyperlipidemia, unspecified Status: Acute Assessment and Plan: Continue statin Plan Thank you for allowing us to participate in this patient's care. Please do not hesitate to contact us with any questions. Subjective Date/time seen: 06/02/23 11:26 Interval history: Patient doing well today. Okay to discharge per hospitalist team. Exam Narrative: GENERAL: Comfortable, no acute distress HENMT: moist mucous membranes EYES: EOM intact b/l NECK: no lymphadenopathy RESPIRATORY: clear to auscultation CARDIO: RRR GI: soft, nontender, bowel sounds present SKIN: no rashes EXTREMITIES: right knee with Tegaderm dry and intact with ice pack over the top Objective Data Vital Signs Vital Signs: Vital Signs - 24 hr 06/01/23 22:26 06/01/23 22:00 06/01/23 22:20 Temperature 97.1 F L Pulse Rate 86 86 Respiratory Rate 16 Blood Pressure 114/54 L Pulse Oximetry 97 Oxygen Delivery Room Air 06/02/23 05:34 Temperature 97.4 F L Pulse Rate 80 Respiratory Rate 16 Blood Pressure 115/45 L Pulse Oximetry 98 Oxygen Delivery Intake/Output Intake/Output: Intake & Output 05/30/23 05/31/23 06/01/23 06/02/23 23:59 23:59 23:59 23:59 Intake Total 1210 1370 710 200 Balance 1210 1370 710 200 Meds/Results Medications: Active Medications Generic Name Dose Route Start Last Admin Trade Name Freq PRN Reason Stop Dose Admin Acetaminophen 1,000 mg 05/31/23 14:00 06/02/23 05:43 Acetaminophen 500 Mg Tablet PO 1,000 mg Q8HR KUMAR Administration Apixaban 5 mg 05/30/23 21:00 06/02/23 08:41 Apixaban 5 Mg Tablet PO 5 mg Q12HR KUMAR Administration Ascorbic Acid 1,000 mg 05/31/23 09:00 06/02/23 08:43 Ascorbic Acid 500 Mg Tablet PO 1,000 mg DAILY KUMAR Administration Atorvastatin Calcium 10 mg 06/02/23 09:00 06/02/23 08:44 Atorvastatin 10 Mg Tablet PO 10 mg MoFr@0900 [facility] Administration Calcium Carbonate 500 mg 05/31/23 09:00 06/02/23 08:42 Calcium Carbonate (Oscal) 500 Mg Tablet PO 500 mg DAILY KUMAR Administration Carisoprodol 350 mg 05/30/23 12:00 06/01/23 22:26 Carisoprodol (*Crx) 350 Mg Tablet PO 350 mg TID PRN Administration Muscle Spasm Escitalopram Oxalate 10 mg 05/31/23 09:00 06/02/23 08:41 Escitalopram Oxalate 10 Mg Tablet PO 10 mg DAILY KUMAR Administration Furosemide 40 mg 05/31/23 09:00 06/02/23 08:44 Furosemide 40 Mg Tablet PO 40 mg DAILY PRN Administration Edema Levothyroxine Sodium 50 mcg 05/31/23 06:30 06/02/23 05:44 Levothyroxine Sodium 50 Mcg Tablet PO 50 mcg DAILY@0630 KUMAR Administration Metoprolol Succinate 12.5 mg 05/30/23 21:00 06/01/23 22:26 Metoprolol Succinate Ext Rel 12.5 Mg Tabcr PO 12.5 mg HS KUMAR Administration Multivitamins Therapeutic 1 tablet 05/31/23 09:00 06/02/23 08:41 Multivitamins Therapeutic Tab (*Bkc) PO 1 tablet DAILY KUMAR Administration Naloxone HCl 0.1 mg 05/30/23 11:28 Naloxone Hcl 0.4 Mg/Ml Vial IV PUSH Q2M PRN Opiate Reversal Non-For
[2023-06-02 14:00] VITALS: BP 130/59; PULSE 81; RESP 18; TEMP 36; O2SAT 100
== END 2023-06-02 14:40 | disposition home health service (06) ==
LOC: ANHSURGERY 13:42 → ANH3MEDSUR 13:42
PROVIDERS: Internal Medicine Critical Care Medicine; Physician Assistant; Admitting Provider Orthopaedic Surgery; PCP Nurse Practitioner; Visit Provider Orthopaedic Surgery
PROC: (CPT 27447; principal; 2023-05-30 07:30)
DX: M17.11 Unilateral primary osteoarthritis, right knee (principal); I48.0 Paroxysmal atrial fibrillation; E03.9 Hypothyroidism, unspecified; E78.5 Hyperlipidemia, unspecified; M16.11 Unilateral primary osteoarthritis, right hip; M19.011 Primary osteoarthritis, right shoulder; G89.18 Other acute postprocedural pain; M62.838 Other muscle spasm; G47.33 Obstructive sleep apnea (adult) (pediatric); F90.9 Attention-deficit hyperactivity disorder, unspecified type; Z96.652 Presence of left artificial knee joint; E66.3 Overweight; Z68.26 Body mass index [BMI] 26.0-26.9, adult; F10.90 Alcohol use, unspecified, uncomplicated; Z79.01 Long term (current) use of anticoagulants; Z79.891 Long term (current) use of opiate analgesic; Z79.899 Other long term (current) drug therapy; Z82.61 Family history of arthritis
CPT/HCPCS: 27447; 64447; 36415; 73560; 80048; 80053; 80307; 82040; 83036; 83735; 84443; 85014; 85018; 85025; 85027; 86850; 86900; 86901; 87081; 93005; 97110; 97116; 97161; 97165; 97530; 97535; A9270; C1713; G0378; J0171; J0690; J1100; J2250; J2270; J2405; J2704; J2795; J3010; J7030; J7120